=== PATIENT | male | born 1940 | race Caucasian/White ===

== ENCOUNTER 2016-12-09 10:36 | Emergency (ER) | payer MEDICARE, BC ==
[2016-12-09 10:55] VITALS: BP 142/88
--- NOTE | 2016-12-09 11:10 | EDM.PDOC ---
ED HPI GENERAL MEDICAL PROBLEM - General Chief Complaint: Neurological Problem Stated Complaint: DIZZY Time Seen by Provider: 12/09/16 11:10 Source of Information: Reports: Patient History Limitations: Reports: No Limitations - History of Present Illness INITIAL COMMENTS - FREE TEXT/NARRATIVE: Patient is a 76 year old male who awoke this morning with dizziness upon sitting /or standing up. Denies sensation of the room spinning nor history of similar symptoms. With ambulation had to hold onto the wall and furniture. Symptoms resolve with laying down. Has no headache, vision changes, recent URI, substernal chest pain, sob, n/v, abdominal pain, or dysuria. Denies any weakness to the upper/lower extremities. No sensory changes noted as well. He has not had any change in medications or complained of Fever/chills. He has had some discomfort to the left lateral chest with taking a deep breath. NO history of DVT/PE. Left Chest Pain Score (Numeric/FACES): 0 - Related Data Allergies Allergy/AdvReac Type Severity Reaction Status Date / Time amitriptyline AdvReac nausea/vomi Verified 12/09/16 10:51 ting caffeine AdvReac Headache Verified 12/09/16 10:51 codeine AdvReac nausea/vomi Verified 12/09/16 10:51 ting Home Meds: Home Meds Lisinopril 40 mg PO DAILY 08/18/13 [History] Antiox#10/Om3/DHA/EPA/Lut/Zeax [I-Caps with Lutein-[place] 3 SFG] 1 cap PO DAILY 04/18/14 [History] Gluc Shah/Chondro Shah A/Vit C/Mn [Glucosamine 1,500 Complex Cp] 1 cap PO DAILY [History] Ibuprofen [Advil] 200 mg PO Q6HR PRN 04/18/14 [History] Cholecalciferol (Vitamin D3) [Vitamin D3] 5,000 unit PO Q2D 12/09/16 [History] Cinnamon Bark [Cinnamon] 1,000 mg PO DAILY 12/09/16 [History] Magnesium Oxide/Mag AA Chelate [Magnesium] 300 mg PO DAILY 12/09/16 [History] SUMAtriptan Succinate [Imitrex] 50 mg PO ASDIRECTED 12/09/16 [History] atorvaSTATin [Lipitor] 10 mg PO ONETIME 12/09/16 [History] Social & Family History - Tobacco Use Smoking Status *Q: Never Smoker - Alcohol Use Days Per Week of Alcohol Use: 0 - Recreational Drug Use Recreational Drug Use: No ED ROS GENERAL - Review of Systems Review Of Systems: ROS reveals no pertinent complaints other than HPI. ED EXAM, GENERAL - Physical Exam Exam: See Below Exam Limited By: No Limitations General Appearance: Alert, WD/WN, No Apparent Distress Eye Exam: Bilateral Eye: EOMI, Nystagmus (none found), PERRL Ears: Normal External Exam, Normal Canal, Normal TMs, Hearing Loss, Other ( hearing aids in place) Nose: Normal Inspection, Normal Mucosa, No Blood Throat/Mouth: Normal Inspection, Normal Oropharynx, Normal Voice, No Airway Compromise Head: Atraumatic, Normocephalic Neck: Normal Inspection, Supple, Non-Tender, Full Range of Motion. No: Carotid Bruit Respiratory/Chest: No Respiratory Distress, Lungs Clear, Normal Breath Sounds, No Accessory Muscle Use, Chest Non-Tender Cardiovascular: Normal Peripheral Pulses, Regular Rate, Rhythm, No JVD, No Murmur. No: JVD Peripheral Pulses: 2+: Radial (L), Radial (R) GI/Abdominal: Normal Bowel Sounds, Soft, Non-Tender, No Organomegaly, No Distention, No Mass Back Exam: Normal Inspection Extremities: Normal Inspection, Normal Range of Motion, Non-Tender, No Pedal Edema Neurological: Alert, Oriented, CN II-XII Intact, Normal Cognition, No Motor/ Sensory Deficits, Other (Cerebellar fx intact: finger to nose, rapid alternating movement. NO facial drip, pronator drift, weakness upper/lower extremities, sensory/motor deficits. ) Psychiatric: Normal Affect, Normal Mood Skin Exam: Warm, Dry, Intact, Normal Color Course - Vital Signs Last Recorded V/S: Last Vital Signs Temp 96.7 F 12/09/16 10:52 Pulse 78 12/09/16 16:12 Resp 18 12/09/16 16:12 BP 142/88 H 12/09/16 10:52 Pulse Ox 100 12/09/16 16:12 Orthostatic Blood Pressure [ 142/87 Standing] Orthostatic Blood Pressure [ 145/95 Sitting] Orthostatic Blood Pressure [ 128/89 Supine] - Orders/Labs/Meds Labs: Laboratory Tests 12/09/16 12/09/16 12/09/16 Range/Units 11:20 11:20 11:20 WBC 5.46 (4.23-9.07) K/mm3 RBC 4.47 L (4.63-6.08) M/mm3 Hgb 14.4 (13.7-17.5) gm/L Hct 41.7 (40.1-51.0) % MCV 93.3 H (79.0-92.2) fl MCH 32.2 (25.7-32.2) pg MCHC 34.5 (32.2-35.5) g/dl RDW Std Deviation 40.9 (35.1-43.9) fL Plt Count 188 (163-337) K/mm3 MPV 9.7 (9.4-12.3) fl Neut % (Auto) 65.1 (34.0-67.9) % Lymph % (Auto) 21.1 L (21.8-53.1) % Grainger % (Auto) 12.3 H (5.3-12.2) % Eos % (Auto) 1.3 (0.8-7.0) Baso % (Auto) 0.2 (0.1-1.2) % Neut # (Auto) 3.56 (1.78-5.38) K/mm3 Lymph # (Auto) 1.15 L (1.32-3.57) K/mm3 Grainger # (Auto) 0.67 (0.30-0.82) K/mm3 Eos # (Auto) 0.07 (0.04-0.54) K/mm3 Baso # (Auto) 0.01 (0.01-0.08) K/mm3 PT 10.6 (8.0-13.0) SECONDS INR 0.97 APTT 25 (22-36) SECONDS D-Dimer, Quantitative 0.36 (0.19-0.59) mg/L Sodium 139 (136-145) mEq/L Potassium 4.3 (3.5-5.1) mEq/L Chloride 106 (98-107) mEq/L Carbon Dioxide 26 (21-32) mEq/L Anion Gap 11.3 (5-15) BUN 23 H (7-18) mg/dL Creatinine 0.8 (0.7-1.3) mg/dL Est Cr Clr Drug Dosing 77.19 mL/min Estimated GFR (MDRD) > 60 (>60) mL/min BUN/Creatinine Ratio 28.8 H (14-18) Glucose 94 (83-115) mg/dL Calcium 9.6 (8.5-10.1) mg/dL Total Bilirubin 0.8 (0.2-1.0) mg/dL AST 26 (15-37) U/L ALT 39 (16-63) U/L Alkaline Phosphatase 73 (46-116) U/L Troponin I < 0.017 (0.00-0.056) ng/mL C-Reactive Protein 0.2 (<1.0) mg/dL Total Protein 7.1 (6.4-8.2) g/dl Albumin 3.6 (3.4-5.0) g/dl Globulin 3.5 gm/dL Albumin/Globulin Ratio 1.0 (1-2) TSH 3rd Generation 1.101 (0.358-3.74) uIU/mL Urine Color (Yellow) Urine Appearance (Clear) Urine pH (5.0-8.0) Ur Specific [place] (1.005-1.030) Urine Protein (Negative) Urine Glucose (UA) (Negative) Urine Ketones (Negative) Urine Occult Blood (Negative) Urine Nitrite (Negative) Urine Bilirubin (Negative) Urine Urobilinogen (0.2-1.0) Ur Leukocyte Esterase (Negative) Urine RBC (0-5) /hpf Urine WBC (0-5) /hpf Ur Epithelial Cells (0-5) /hpf Amorphous Sediment (NOT SEEN) /hpf Urine Bacteria (FEW) /hpf Hyaline Casts (0-5) /lpf Waxy Casts (0-5) /lpf Urine Mucus (FEW) /hpf 12/09/16 Range/Units 15:15 WBC (4.23-9.07) K/mm3 RBC (4.63-6.08) M/mm3 Hgb (13.7-17.5) gm/L Hct (40.1-51.0) % MCV (79.0-92.2) fl MCH (25.7-32.2) pg MCHC (32.2-35.5) g/dl RDW Std Deviation (35.1-43.9) fL Plt Count (163-337) K/mm3 MPV (9.4-12.3) fl Neut % (Auto) (34.0-67.9) % Lymph % (Auto) (21.8-53.1) % Grainger % (Auto) (5.3-12.2) % Eos % (Auto) (0.8-7.0) Baso % (Auto) (0.1-1.2) % Neut # (Auto) (1.78-5.38) K/mm3 Lymph # (Auto) (1.32-3.57) K/mm3 Grainger # (Auto) (0.30-0.82) K/mm3 Eos # (Auto) (0.04-0.54) K/mm3 Baso # (Auto) (0.01-0.08) K/mm3 PT (8.0-13.0) SECONDS INR APTT (22-36) SECONDS D-Dimer, Quantitative (0.19-0.59) mg/L Sodium (136-145) mEq/L Potassium (3.5-5.1) mEq/L Chloride (98-107) mEq/L Carbon Dioxide (21-32) mEq/L Anion Gap (5-15) BUN (7-18) mg/dL Creatinine (0.7-1.3) mg/dL Est Cr Clr Drug Dosing mL/min Estimated GFR (MDRD) (>60) mL/min BUN/Creatinine Ratio (14-18) Glucose (83-115) mg/dL Calcium (8.5-10.1) mg/dL Total Bilirubin (0.2-1.0) mg/dL AST (15-37) U/L ALT (16-63) U/L Alkaline Phosphatase (46-116) U/L Troponin I (0.00-0.056) ng/mL C-Reactive Protein (<1.0) mg/dL Total Protein (6.4-8.2) g/dl Albumin (3.4-5.0) g/dl Globulin gm/dL Albumin/Globulin Ratio (1-2) TSH 3rd Generation (0.358-3.74) uIU/mL Urine Color Yellow (Yellow) Urine Appearance Slt cloudy H (Clear) Urine pH 7.0 (5.0-8.0) Ur Specific [place] 1.025 (1.005-1.030) Urine Protein Negative (Negative) Urine Glucose (UA) Negative (Negative) Urine Ketones Negative (Negative) Urine Occult Blood Negative (Negative) Urine Nitrite Negative (Negative) Urine Bilirubin Negative (Negative) Urine Urobilinogen 0.2 (0.2-1.0) Ur Leukocyte Esterase Negative (Negative) Urine RBC 0-5 (0-5) /hpf Urine WBC 0-5 (0-5) /hpf Ur Epithelial Cells 0-5 (0-5) /hpf Amorphous Sediment Moderate H (NOT SEEN) /hpf Urine Bacteria Few (FEW) /hpf Hyaline Casts 0-5 (0-5) /lpf Waxy Casts 0-5 (0-5) /lpf Urine Mucus Few (FEW) /hpf Meds: Medications Discontinued Medications Generic Name Dose Route Start Last Admin Trade Name Freq PRN Reason Stop Dose Admin Gadobenate Dimeglumine 20 ml 12/09/16 13:27 12/09/16 14:44 Multihance IVPUSH 12/09/16 13:28 20 ml ONETIME ONE Administration Sodium Chloride 1,000 mls @ 150 mls/hr 12/09/16 11:30 12/09/16 11:42 Normal Saline IV 75 mls/hr ASDIRECTED URMILA Administration Lorazepam 1 mg 12/09/16 12:28 12/09/16 12:52 Ativan IVPUSH 12/09/16 12:29 1 mg ONETIME ONE Administration Sodium Chloride 10 ml 12/09/16 11:28 12/09/16 11:20 Saline Flush FLUSH 10 ml ASDIRECTED PRN Administration Keep Vein Open Sodium Chloride 40 ml 12/09/16 13:27 12/09/16 14:10 Normal Saline FLUSH 12/09/16 13:28 40 ml ONETIME ONE Administration - Re-Assessments/Exams Free Text/Narrative Re-Assessment/Exam: Peripheral IV will be established with normal saline 75 mL per hour. Initial labs and studies include CBC, Chem 14, PTT/INR, PTT, troponin, TSH, UA, CRP, chest x-ray one view, head CT without contrast, and d-dimer. EKG sinus rhythm and rate of 68 with a WA interval 163 and a QTC of 446, poor R wave progression, Q waves in anterior lateral leads, no acute ST changes. 12/09/16 12:04 Labs reviewed: White blood cell count 5.46, hemoglobin 14.4, platelets 183. d-dimer was 0.36 therefore patient has low probability for PE. Troponin, TSH, C14, UA, CRP are pending. CXR reviewed: No acute intrathoracic abnormalities noted. 12/09/16 12:26 Sodium 139, potassium 4.3, AG is 11.3, creatinine 0.8, glucose 94 , LFTs normal, troponin less than 0.017, CRP 0.2, TSH is 1.101. Hemoccult test was negative. Orthostatic vitals were negative. CT of the head w/o contrast impression: Soft tissue fullness within the pituitary fossa extending into the right cavernous sinus. Uncertain if this is a real finding as there is some adjacent mucosal thickening within the spine or sinus. MRI recommended which should include contrast images to further evaluate. Mild senescent changes. No intracranial abnormalities otherwise seen. 12/09/16 13:10 Ordered MRI of the brain. This will be conducted in approximately 15 minutes. Patient has been up walking with no dizziness. He is ready to go home but will await for results of MRI. 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 No involvement of the optic chiasm is seen. This finding is vaguely seen on prior study [id number] and therefore is likely chronic but better seen as this was a pituitary study. Recommend repeat pituitary MRI to confirm continued stability one year. Please correlate that the patient has no symptoms referral to these findings to indicate earlier intervention. Mild ischemic demyelination change as noted above. Patient has been experiencing frequent severe headaches aborted with imitrex. Will order LH, FSH, prolactin to further delineate what hormone is being secreted by the adenoma. Further testing will be conducted by endocrinology. Patient will see his PCP to discuss results and refer to endocrinology. Departure - Departure Time of Disposition: 15:50 Disposition: Home, Self-Care 01 Condition: Good Clinical Impression: Dizzinesses, Pituitary macroadenoma Instructions: Recurrent Migraine Headache, Dizziness Referrals: Mary Jo Garg NP [Primary Care Provider] - Forms: ED Department Discharge Additional Instructions: MRI of the brain revealed a small pituitary macroadenoma. Low probability this is the cause of your frequent headaches. Dizziness was resolved with Ativan suggesting that this was benign in nature. Ears were cleanse due to cerumen impaction. This may have been the cause of your dizziness as well. Further blood work has been ordered to determine what hormone has been secreted by these macroadenoma. Will have you follow-up with your PCP in the next week to discuss results and referr to endocrinology for further testing and management. Return to ED as needed for any new or worsening symptoms.
[2016-12-09] MEDS ORDERED: Sodium Chloride 0.9% 10 ML Syringe FLUSH PRN (11:28)
[2016-12-09] MEDS ORDERED: Sodium Chloride 0.9% 1,000 ML IV SCH (11:30)
[2016-12-09] MEDS ORDERED: LORazepam 2 MG/ML MDV IVPUSH ONE (12:28)
--- NOTE | 2016-12-09 12:44 | CT ---
Head CT Technique: Multiple axial sections were obtained. Intravenous contrast was not utilized. Comparison: No previous intracranial imaging is available. Findings: Ventricles along with basal cisterns and sulci over the convexities are mildly prominent. No abnormal parenchymal densities are seen. No evidence of intracranial hemorrhage. No midline shift or mass effect is seen. Soft tissue fullness is seen within the pituitary fossa extending into the right cavernous sinus. There is some adjacent mucosal thickening within the sphenoid sinus and uncertain if findings within the cavernous sinus and pituitary are more prominent than real due to partial volume averaging because of the sinus finding. Other visualized sinuses are clear. No acute calvarial abnormality is identified. Impression: 1. Soft tissue fullness within the pituitary fossa extending into the right cavernous sinus. Uncertain if this is a real finding as there is some adjacent mucosal thickening within the sphenoid sinus. MRI recommended which should include contrast images to further evaluate (if patient's creatinine function is satisfactory). 2. Mild senescent change. No acute intracranial abnormality is otherwise seen. Diagnostic code #9
[2016-12-09] MEDS ORDERED: Gadobenate Dimeglumine 529 MG/ML 20 ML SDV IVPUSH ONE (13:27)
[2016-12-09] MEDS ORDERED: Sodium Chloride 0.9% 10 ML SDV FLUSH ONE (13:27)
--- NOTE | 2016-12-09 14:23 | CR ---
Chest: Portable view of the chest was obtained. Comparison: Previous chest x-ray of 07/05/15. Heart size is normal. Upper mediastinum is felt to be within normal limits for portable technique. Lungs are clear. Bony structures are grossly intact. Impression: 1. Nothing acute is appreciated on portable chest x-ray. Diagnostic code #2
--- NOTE | 2016-12-09 15:35 | MR ---
MRI brain with pituitary (with and without contrast) Technique: T1 sagittal; T2, T2 FLAIR, T1 and diffusion axial; T1 FLAIR coronal; T1 axial and sagittal images to take gland were obtained. Post gadolinium T1 sagittal images as well as T1 post gadolinium dynamic images through the pituitary gland were obtained. Post gadolinium T1 axial and post gadolinium T1 FLAIR coronal images were obtained to the brain. Comparison: Prior head CT study performed earlier on the same day (12:08 PM), prior MRI brain dated 11/03/12. Findings: Poorly enhancing area is seen to the right side of the pituitary fossa believed to represent small pituitary mass measuring about 1.1 cm in size most likely representing a pituitary macroadenoma. This abuts the cavernous sinus but shows no extension into the cavernous sinus at this time. Infundibulum remains midline. No superior extension to involve the optic chiasm is seen. Ventricles along with basal cisterns and sulci over convexities are mildly prominent. Normal signal void is seen within the major cerebral arteries within the skull base. Small areas of increased signal are noted within the periventricular and subcortical white matter compatible with small vessel ischemic demyelination change. No larger areas of abnormal signal are seen within the brain parenchyma. No acute diffusion abnormalities are seen. No abnormal enhancement is seen within the brain parenchyma. Impression: 1. 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 No involvement of the optic chiasm is seen. This finding is vaguely seen on prior study of 11/03/12 and therefore is likely chronic but better seen as this was a pituitary study. Recommend repeat pituitary MRI to confirm continued stability in one year. Please correlate that patient has no symptoms referrable to this finding to indicate earlier intervention. 2. Mild ischemic demyelination change as noted above. Diagnostic code #9
== END 2016-12-09 16:00 | disposition home or self-care (01) ==
LOC: JD.ED 10:36
DX: R42 Dizziness and giddiness (principal); D35.2 Benign neoplasm of pituitary gland; Z79.899 Other long term (current) drug therapy; Z88.8 Allergy status to other drugs, medicaments and biological substances; Z91.048 Other nonmedicinal substance allergy status; Z88.5 Allergy status to narcotic agent
CPT/HCPCS: 36415; 70450; 70553; 71010; 80053; 81001; 84443; 84484; 85025; 85379; 85610; 85730; 86140; 96361; 96374; 99285; A9577; J2060; J7040; J7050; 99284

== ENCOUNTER 2017-05-13 10:58 | Day surgery (SDC) | payer MEDICARE, BC ==
[~2017-05-13 10:58] MED LIST: Lactated Ringers 1,000 ML IV SCH; Lidocaine 1%/Sod Bicarbonate in NS 8.4% 1 ML Syringe IDERM PRN; Sodium Chloride 0.9% 10 ML Syringe FLUSH PRN
[2017-05-13] MEDS ORDERED: Lidocaine 1% with EPINEPHrine 1:100,000 20 ML MDV ONE (11:01)
[2017-05-13] MEDS ORDERED: Bupivacaine 0.5%/EPINEPHrine 1:200,000 50 ML MDV ONE (11:02)
--- NOTE | 2017-05-13 11:21 | PCM.PREANE ---
Preanesthetic Assessment - Anesthesia/Transfusion/Family Hx Anesthesia History: Prior Anesthesia Without Reaction Type of Anesthesia Reaction: Other (see below) (difficult intubation) Family History of Anesthesia Reaction: No Transfusion History: Prior Transfusion Without Reaction Intubation History: History of Difficulty Intubation (letter from [facility]) - Review of Systems General: No Symptoms Pulmonary: No Symptoms Cardiovascular: No Symptoms Gastrointestinal: No Symptoms Neurological: No Symptoms Other: Reports: Easy Bruising - Physical Assessment NPO Status Date: 05/12/17 NPO Status Time: 23:00 Pulse: 90 O2 Sat by Pulse Oximetry: 93 Respiratory Rate: 19 Blood Pressure: 144/84 Temperature: 97.8 F Height: 5 ft 8 in Weight: 111 kg ASA Class: 3 Mental Status: Alert & Oriented x3 Airway Class: Mallampati = 2 Dentition: Reports: Normal Dentition Thyro-Mental Finger Breadths: 2 Mouth Opening Finger Breadths: 3 ROM/Head Extension: Other Lungs: Clear to Auscultation, Normal Respiratory Effort Cardiovascular: Regular Rate, Regular Rhythm - Allergies Allergies/Adverse Reactions: Allergies Allergy/AdvReac Type Severity Reaction Status Date / Time amitriptyline AdvReac nausea/vomi Verified 05/12/17 13:11 ting caffeine AdvReac Headache Verified 05/12/17 13:11 codeine AdvReac nausea/vomi Verified 05/12/17 13:11 ting - Blood Blood Available: No - Acknowledgements Anesthesia Type Planned: General Anesthesia Pt an Appropriate Candidate for the Planned Anesthesia: Yes Alternatives and Risks of Anesthesia Discussed w Pt/Guardian: Yes Pt/Guardian Understands and Agrees with Anesthesia Plan: Yes PreAnesthesia Questionnaire HEENT History: Reports: Hard of Hearing Cardiovascular History: Reports: Arrhythmia, High Cholesterol, Hypertension Respiratory History: Reports: Sleep Apnea, Other (See Below) Other Respiratory History: wears CPAP Gastrointestinal History: Reports: Hemorrhoids, Other (See Below) Other Gastrointestinal History: abdominal hernia Genitourinary History: Reports: Renal Calculus, Other (See Below) Other Genitourinary History: blood in urine, baldder stone, nocturia, history of need for catheterization TIRE MOLDER History: Reports: None Musculoskeletal History: Reports: Osteoporosis, Other (See Below) Other Musculoskeletal History: generalized weakness, bilateral plantar fasciitis , right elbow pain Neurological History: Reports: Headaches, Chronic, Migraines Psychiatric History: Reports: None Endocrine/Metabolic History: Reports: Vitamin D Deficiency Hematologic History: Reports: None Immunologic History: Reports: None Oncologic (Cancer) History: Reports: Prostate Dermatologic History: Reports: Other (See Below) Other Dermatologic History: ingrown toenail, benign neoplasm of face, seborrheic keratosis, skin lesion and skin irritation - Past Surgical History HEENT Surgical History: Reports: Tonsillectomy Cardiovascular Surgical History: Reports: None Respiratory Surgical History: Reports: None GI Surgical History: Reports: Colonoscopy, Hernia Repair/Other Male Surgical History: Reports: Other (See Below) Other Male Surgeries/Procedures: lithotripsy Endocrine Surgical History: Reports: None Neurological Surgical History: Reports: None Musculoskeletal Surgical History: Reports: Knee Replacement, Other (See Below) Other Musculoskeletal Surgeries/Procedures:: low back surgery, right total knee , 2 rods in right hip Dermatological Surgical History: Reports: None - SUBSTANCE USE Smoking Status *Q: Never Smoker Tobacco Use Within Last Twelve Months: No Second Hand Smoke Exposure: No Days Per Week of Alcohol Use: 0 (once a month) Recreational Drug Use History: No - HOME MEDS Home Medications: Home Meds Antiox#10/Om3/DHA/EPA/Lut/Zeax [I-Caps with Lutein-[place] 3 SFG] 1 cap PO DAILY 04/18/14 [History] Gluc Shah/Chondro Shah A/Vit C/Mn [Glucosamine 1,500 Complex Cp] 1 cap PO DAILY [History] Cholecalciferol (Vitamin D3) [Vitamin D3] 5,000 unit PO Q2D 12/09/16 [History] SUMAtriptan Succinate [Imitrex] 50 mg PO ASDIRECTED PRN 12/09/16 [History] atorvaSTATin [Lipitor] 10 mg PO BEDTIME 12/09/16 [History] Acetaminophen [Tylenol Extra Strength] 2 tab PO BID PRN 05/12/17 [History] Alendronate Sodium [Alendronate] 70 mg PO TU 05/12/17 [History] Lisinopril [Lisinopril] 20 mg PO DAILY 05/12/17 [History] Magnesium Oxide/Mag AA Chelate [Magnesium] 300 mg PO DAILY 05/12/17 [History] Tamsulosin HCl [Tamsulosin HCl] 0.4 mg PO DAILY 05/12/17 [History] - CURRENT (IN HOUSE) MEDS Current Meds: Current Medications Lactated Ringer's (Ringers, Lactated) 1,000 mls @ 125 mls/hr IV ASDIRECTED URMILA Stop: 05/13/17 23:00 Lidocaine/Sodium Bicarbonate (Buffered Lidocaine 1% In Ns 8.4%) 0.25 ml IDERM ONETIME PRN PRN Reason: Prior to IV Start Stop: 05/13/17 18:00 Sodium Chloride (Saline Flush) 10 ml FLUSH ASDIRECTED PRN PRN Reason: Keep Vein Open Stop: 05/13/17 18:00 Discontinued Medications Bupivacaine HCl/Epinephrine Bitart (Marcaine 0.5%/Epinephrine 1:200,000) Confirm Administered Dose 50 ml .ROUTE .STK-MED ONE Stop: 05/13/17 11:03 Lidocaine/Epinephrine (Xylocaine 1% With Epinephrine 1:100,000) Confirm Administered Dose 20 ml .ROUTE .STK-MED ONE Stop: 05/13/17 11:02
[2017-05-13] MEDS ORDERED: Propofol 200 MG/20 ML SDV ONE (11:44)
[2017-05-13] MEDS ORDERED: fentaNYL 250 MCG/5 ML SDV ONE (11:44)
[2017-05-13] MEDS ORDERED: Lidocaine 1% 4 ML ONE (11:47)
[2017-05-13] MEDS ORDERED: Dexamethasone 4 MG/ML SDV ONE (11:47)
[2017-05-13] MEDS ORDERED: Ondansetron 4 MG/2 ML SDV ONE (11:47)
[2017-05-13] MEDS ORDERED: ePHEDrine/Normal Saline 25 MG/5 ML Syringe ONE (12:08)
[2017-05-13] MEDS ORDERED: Phenylephrine/Normal Saline 100 MCG/ML 10 ML Syringe ONE (12:14)
[2017-05-13] MEDS ORDERED: Ondansetron 4 MG/2 ML SDV IVPUSH PRN (12:19)
[2017-05-13] MEDS ORDERED: Meperidine PF 50 MG/ML Syringe IVPUSH PRN (12:19)
[2017-05-13] MEDS ORDERED: Lactated Ringers 1,000 ML ONE (12:42)
--- NOTE | 2017-05-13 12:42 | PCM.OPNOTE ---
- General Post-Op/Procedure Note Date of Surgery/Procedure: 05/13/17 Operative Procedure(s): Open supraumbilical hernia repair with mesh Findings: 3 cm defect containing herniated greater omentum with an a mature hernia sac Pre Op Diagnosis: Symptomatic supraumbilical hernia nonreducible Post-Op Diagnosis: Same Anesthesia Technique: General LMA, Local Primary Surgeon: Ulysses Carter Pathology: None EBL in mLs: 3 Complications: None Condition: Good Free Text/Narrative:: After adequate general LMA anesthesia was obtained the patient's abdomen was prepped and draped in the usual fashion for an open umbilical hernia repair with mesh. Local analgesia was given into the skin and subcutaneous tissues. A 15 blade was used to make a 6 cm incision in the midline. I deepened the incision with Metzenbaum scissors sharply to the immediately seen hernia. I circumferentially dissected away the herniation from the surrounding subcutaneous tissues with blunt finger sharp scissor and electrocautery to divide the adhesions. Once this was done I then excised the base of the sac from the fascial edge. I opened the sac which contained greater omentum. I will excise the sac and reduced the hernia. The hernia defect was 3 cm. I placed a 6.[address] mesh within the defect then closed the fascia over the mesh with 8 interrupted 0 Ethibond sutures. I irrigated out the field with saline. Additional local was given at the fascial level. The subcutaneous tissues were closed with 3-0 Vicryl and the skin was closed with 4-0 subcuticular Vicryl. Steri-Strips and gauze were used for the dressing. There were no procedural complications.
[2017-05-13] MEDS: fentaNYL 100 MCG/2 ML SDV IVPUSH PRN ×3 (13:07→13:30)
--- NOTE | 2017-05-13 13:10 | PCM.POSTAN ---
POST ANESTHESIA ASSESSMENT - MENTAL STATUS Mental Status: Alert, Oriented - VITAL SIGNS Pulse Rate: 102 SaO2: 90 Resp Rate: 16 Blood Pressure: 152/94 Temperature: 36.9 C - RESPIRATORY Respiratory Status: Respiratory Rate WNL, Airway Patent, O2 Saturation Stable, Supplemental Oxygen - CARDIOVASCULAR CV Status: Pulse Rate WNL - GASTROINTESTINAL GI Status: No Symptoms - PAIN Pain Score: 0 - POST OP HYDRATION Hydration Status: Adequate & Stable - OBSERVATIONS Free Text/Narrative:: no anesthesia complications noted
[2017-05-13] MEDS ORDERED: Acetaminophen/oxyCODONE 325-5 MG Tab PO PRN (13:28)
[2017-05-13 14:01] VITALS: BP 131/86
== END 2017-05-13 15:15 | disposition home or self-care (01) ==
LOC: JD.SDS 10:58
PROVIDERS: ATTEND Surgery
DX: K43.9 Ventral hernia without obstruction or gangrene (principal); M81.0 Age-related osteoporosis without current pathological fracture; E78.2 Mixed hyperlipidemia; R31.9 Hematuria, unspecified; I10 Essential (primary) hypertension; L60.0 Ingrowing nail; E55.9 Vitamin D deficiency, unspecified; G47.30 Sleep apnea, unspecified; Z88.5 Allergy status to narcotic agent; Z98.890 Other specified postprocedural states; Z85.46 Personal history of malignant neoplasm of prostate; Z79.899 Other long term (current) drug therapy; Z88.8 Allergy status to other drugs, medicaments and biological substances; Z90.89 Acquired absence of other organs; Z99.89 Dependence on other enabling machines and devices; Z87.442 Personal history of urinary calculi; Z96.651 Presence of right artificial knee joint
CPT/HCPCS: 49561; 49568; A9270; C1781; J1100; J2405; J3010; J7050; J7120; J2704

== ENCOUNTER 2019-11-16 15:25 | Emergency (ER) | payer MEDICARE, BC ==
[2019-11-16] MEDS ORDERED: Lidocaine 2% Jelly 10 ML Urojet MUCMEM ONE (15:32)
[2019-11-16 15:38] VITALS: BP 146/91; PULSE 94
--- NOTE | 2019-11-16 17:57 | EDM.PDOC ---
ED HPI GENERAL MEDICAL PROBLEM - General Chief Complaint: Genitourinary Problem Stated Complaint: NEEDS CATHETER SENT BY SHU GARG Time Seen by Provider: 11/16/19 15:41 Source of Information: Reports: Patient, RN Notes Reviewed - History of Present Illness INITIAL COMMENTS - FREE TEXT/NARRATIVE: 79 yr old male with urinary retention. States he has to void about every 45 minutes around the clock. Has an appt. with Urology the next day from time of visit to ED. No fever or chills. Attempts were made to place catheter at [facility] but that was unsuccessful. - Related Data Allergies Allergy/AdvReac Type Severity Reaction Status Date / Time amitriptyline AdvReac nausea/vomi Verified 11/16/19 15:38 ting caffeine AdvReac Headache Verified 11/16/19 15:38 codeine AdvReac nausea/vomi Verified 11/16/19 15:38 ting Home Meds: Home Meds Antiox.mv No.10/Omeg3s/Lut/Rob [I-Caps with Lutein-[place] 3 SFG] 1 cap PO DAILY 04/18/14 [History] Gluc Shah/Chondro Shah A/Vit C/Mn [Glucosamine 1,500 Complex Cp] 1 cap PO DAILY 04/18/14 [History] Cholecalciferol (Vitamin D3) [Vitamin D3] 5,000 unit PO Q2D 12/09/16 [History] SUMAtriptan succinate [Imitrex] 50 mg PO ASDIRECTED PRN 12/09/16 [History] atorvaSTATin [Lipitor] 10 mg PO BEDTIME 12/09/16 [History] Acetaminophen [Tylenol Extra Strength] 2 tab PO BID PRN 05/12/17 [History] Alendronate Sodium [Alendronate] 70 mg PO WE 05/12/17 [History] Lisinopril 40 mg PO DAILY 05/12/17 [History] Magnesium Oxide/Magnesium [Magnesium] 800 mg PO DAILY 05/12/17 [History] Tamsulosin HCl 0.4 mg PO DAILY 05/12/17 [History] Cinnamon Bark [Cinnamon] 1,000 mg PO DAILY 11/16/19 [History] Divalproex Sodium [Divalproex Sodium ER] 250 mg PO DAILY 11/16/19 [History] Mv-Mn/Herb 208/Beta-Sitosterol [Urinozinc Prostate Formula Tab] 2 tab PO DAILY 11/16/19 [History] [place]-3/DHA/Epa/Fish Oil [[place]-3 Fish Oil 1,000 MG Sfgl] 520 mg PO DAILY 11/16/19 [History] Past Medical History HEENT History: Reports: Hard of Hearing Cardiovascular History: Reports: Arrhythmia, High Cholesterol, Hypertension Respiratory History: Reports: Sleep Apnea, Other (See Below) Other Respiratory History: wears CPAP Gastrointestinal History: Reports: Hemorrhoids, Other (See Below) Other Gastrointestinal History: abdominal hernia Genitourinary History: Reports: Renal Calculus, Urinary Incontinence, Other (See Below) Other Genitourinary History: blood in urine, baldder stone, nocturia, history of need for catheterization 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 Musculoskeletal History: Reports: Osteoporosis, Other (See Below) Other Musculoskeletal History: generalized weakness, bilateral plantar fasciitis, right elbow pain Neurological History: Reports: Headaches, Chronic, Migraines Psychiatric History: Reports: None Endocrine/Metabolic History: Reports: Obesity/BMI 30+, Vitamin D Deficiency Hematologic History: Reports: None Immunologic History: Reports: None Oncologic (Cancer) History: Reports: Prostate Dermatologic History: Reports: Other (See Below) Other Dermatologic History: ingrown toenail, benign neoplasm of face, seborrheic keratosis, skin lesion and skin irritation - Infectious Disease History Infectious Disease History: Reports: None - Past Surgical History HEENT Surgical History: Reports: Tonsillectomy Respiratory Surgical History: Reports: None GI Surgical History: Reports: Colonoscopy, Hernia Repair/Other Male Surgical History: Reports: Other (See Below) Other Male Surgeries/Procedures: lithotripsy Neurological Surgical History: Reports: None Musculoskeletal Surgical History: Reports: Knee Replacement, Other (See Below) Other Musculoskeletal Surgeries/Procedures:: low back surgery, right total knee, 2 rods in right hip Dermatological Surgical History: Reports: None Social & Family History - Tobacco Use Smoking Status *Q: Never Smoker - Caffeine Use Caffeine Use: Reports: None - Recreational Drug Use Recreational Drug Use: No ED ROS GENERAL - Review of Systems Review Of Systems: See Below Constitutional: Denies: Fever, Chills, Diaphoresis HEENT: Reports: No Symptoms Respiratory: Denies: Shortness of Breath Cardiovascular: Denies: Chest Pain GI/Abdominal: Denies: Abdominal Pain, Nausea, Vomiting : Reports: Frequency, Urgency, Urinary Retention Musculoskeletal: Denies: Back Pain Skin: Reports: No Symptoms Neurological: Reports: No Symptoms ED EXAM, RENAL/ - Physical Exam Exam: See Below General Appearance: Alert, No Apparent Distress Throat/Mouth: Normal Inspection Neck: Supple Respiratory/Chest: No Respiratory Distress, Lungs Clear, Normal Breath Sounds Cardiovascular: Regular Rate, Rhythm GI/Abdominal: Soft, Non-Tender (Male) Exam: Normal Inspection Back Exam: No: CVA Tenderness (L), CVA Tenderness (R) Extremities: Normal Inspection, Normal Range of Motion. No: Pedal Edema, Leg Pain Neurological: Alert, Oriented, No Motor/Sensory Deficits Skin Exam: Warm, Dry, Normal Color Course - Vital Signs Last Recorded V/S: Last Vital Signs Temp 97.6 F 11/16/19 15:33 Pulse 94 11/16/19 15:33 Resp 16 11/16/19 15:33 BP 146/91 H 11/16/19 15:33 Pulse Ox 92 L 11/16/19 15:33 - Orders/Labs/Meds Labs: Laboratory Tests 11/16/19 Range/Units 16:15 Urine Color Yellow (Yellow) Urine Appearance Slt cloudy H (Clear) Urine pH 6.0 (5.0-8.0) Ur Specific [place] 1.025 (1.005-1.030) Urine Protein Trace H (Negative) Urine Glucose (UA) Negative (Negative) Urine Ketones Negative (Negative) Urine Occult Blood 3+ H (Negative) Urine Nitrite Negative (Negative) Urine Bilirubin Negative (Negative) Urine Urobilinogen 0.2 (0.2-1.0) Ur Leukocyte Esterase Negative (Negative) Urine RBC 75-100 H (0-5) /hpf Urine WBC 0-5 (0-5) /hpf Ur Squamous Epith Cells 0-5 (0-5) /hpf Urine Bacteria Few (FEW) /hpf Urine Mucus Few (FEW) /hpf Meds: Medications Discontinued Medications Generic Name Dose Route Start Last Admin Trade Name Freq PRN Reason Stop Dose Admin Lidocaine HCl 10 ml 11/16/19 15:32 11/16/19 16:02 Xylocaine 2% Jelly MUCMEM 11/16/19 15:33 10 ml ONETIME ONE Administration - Re-Assessments/Exams Free Text/Narrative Re-Assessment/Exam: 11/19/19 14:19 Pt voided a small amt, had residual of about 300 ml per bladder scan. Coudee russell placed, about 300 ml out, Ua showed no infection. Grossly clear. Discharge instr. as documented. Departure - Departure Time of Disposition: 17:56 Disposition: Home, Self-Care 01 Condition: Fair Clinical Impression: Retention of urine - Discharge Information Instructions: Acute Urinary Retention, Male, [id number] Referrals: Shu Garg REAL ESTATE ANALYST [Primary Care Provider] - Forms: ED Department Discharge Additional Instructions: Russell catheter with leg bag. Drink plenty of water. See Dr Ortiz tomorrow as planned. Sepsis Event Note (ED) - Evaluation Sepsis Screening Result: No Definite Risk
== END 2019-11-16 18:25 | disposition home or self-care (01) ==
LOC: JD.ED 15:25
DX: R33.9 Retention of urine, unspecified (principal); I10 Essential (primary) hypertension; E66.9 Obesity, unspecified; Z68.41 Body mass index [BMI] 40.0-44.9, adult; Z88.5 Allergy status to narcotic agent; Z88.8 Allergy status to other drugs, medicaments and biological substances; Z79.899 Other long term (current) drug therapy
CPT/HCPCS: 51702; 51798; 81001; 99282; 99283

== ENCOUNTER 2020-01-16 15:06 | Emergency (ER) | payer MEDICARE, BC ==
[2020-01-16] MEDS ORDERED: Lidocaine 2% Jelly 10 ML Urojet MUCMEM ONE (15:19)
--- NOTE | 2020-01-16 15:21 | EDM.PDOC ---
ED HPI GENERAL MEDICAL PROBLEM - General Chief Complaint: General Stated Complaint: CATHETER COMPLAINT/needs COVID testing Time Seen by Provider: 01/16/20 15:13 Source of Information: Reports: Patient, RN Notes Reviewed History Limitations: Reports: No Limitations - History of Present Illness INITIAL COMMENTS - FREE TEXT/NARRATIVE: Patient is a 79-year-old male who presents to the ED for evaluation of his Russell catheter issue. Patient notes that his Russell catheter became plugged earlier today, and he is not noting any drainage coming from the catheter. He does not state he has seen any blood coming from the catheter. It was draining just fine last night, and he noticed this morning that it stopped draining. He further notes that he is to have urological surgery for suprapubic catheter placement this Thursday by a provider at [facility] in [place]. He was told by that provider, that he needed COVID testing prior to surgery, they requested that he get done on Thursday. Patient denies any other sick-like symptoms, fever/chills, cough/shortness of breath, nausea/vomiting/diarrhea. Bladder Pain Score (Numeric/FACES): 8 - Related Data Allergies Allergy/AdvReac Type Severity Reaction Status Date / Time amitriptyline AdvReac nausea/vomi Verified 01/16/20 15:39 ting caffeine AdvReac Headache Verified 01/16/20 15:39 codeine AdvReac nausea/vomi Verified 01/16/20 15:39 ting Home Meds: Home Meds Antiox.mv No.10/Omeg3s/Lut/Rob [I-Caps with Lutein-[place] 3 SFG] 1 cap PO DAILY 04/18/14 [History] Gluc Shah/Chondro Shah A/Vit C/Mn [Glucosamine 1,500 Complex Cp] 1 cap PO DAILY 04/18/14 [History] Cholecalciferol (Vitamin D3) [Vitamin D3] 5,000 unit PO Q2D 12/09/16 [History] SUMAtriptan succinate [Imitrex] 50 mg PO ASDIRECTED PRN 12/09/16 [History] atorvaSTATin [Lipitor] 10 mg PO BEDTIME 12/09/16 [History] Acetaminophen [Tylenol Extra Strength] 2 tab PO BID PRN 05/12/17 [History] Alendronate Sodium [Alendronate] 70 mg PO WE 05/12/17 [History] Lisinopril 40 mg PO DAILY 05/12/17 [History] Magnesium Oxide/Magnesium [Magnesium] 800 mg PO DAILY 05/12/17 [History] Tamsulosin HCl 0.4 mg PO DAILY 05/12/17 [History] Cinnamon Bark [Cinnamon] 1,000 mg PO DAILY 11/16/19 [History] Divalproex Sodium [Divalproex Sodium ER] 250 mg PO DAILY 11/16/19 [History] Mv-Mn/Herb 208/Beta-Sitosterol [Urinozinc Prostate Formula Tab] 2 tab PO DAILY 11/16/19 [History] [place]-3/DHA/Epa/Fish Oil [[place]-3 Fish Oil 1,000 MG Sfgl] 520 mg PO DAILY 11/16/19 [History] Levofloxacin [Levaquin] 500 mg PO DAILY 5 Days #4 tablet 01/16/20 [Rx] Past Medical History HEENT History: Reports: Hard of Hearing Cardiovascular History: Reports: Arrhythmia, High Cholesterol, Hypertension Respiratory History: Reports: Sleep Apnea, Other (See Below) Other Respiratory History: wears CPAP Gastrointestinal History: Reports: Hemorrhoids, Other (See Below) Other Gastrointestinal History: abdominal hernia Genitourinary History: Reports: Renal Calculus, Urinary Incontinence, Other (See Below) Other Genitourinary History: blood in urine, baldder stone, nocturia, history of need for catheterization 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 Musculoskeletal History: Reports: Osteoporosis, Other (See Below) Other Musculoskeletal History: generalized weakness, bilateral plantar fasciitis, right elbow pain Neurological History: Reports: Headaches, Chronic, Migraines Psychiatric History: Reports: None Endocrine/Metabolic History: Reports: Obesity/BMI 30+, Vitamin D Deficiency Hematologic History: Reports: None Immunologic History: Reports: None Oncologic (Cancer) History: Reports: Prostate Dermatologic History: Reports: Other (See Below) Other Dermatologic History: ingrown toenail, benign neoplasm of face, seborrheic keratosis, skin lesion and skin irritation - Infectious Disease History Infectious Disease History: Reports: None - Past Surgical History HEENT Surgical History: Reports: Tonsillectomy Respiratory Surgical History: Reports: None GI Surgical History: Reports: Colonoscopy, Hernia Repair/Other Male Surgical History: Reports: Other (See Below) Other Male Surgeries/Procedures: lithotripsy Neurological Surgical History: Reports: None Musculoskeletal Surgical History: Reports: Knee Replacement, Other (See Below) Other Musculoskeletal Surgeries/Procedures:: low back surgery, right total knee, 2 rods in right hip Dermatological Surgical History: Reports: None Social & Family History - Caffeine Use Caffeine Use: Reports: None ED ROS GENERAL - Review of Systems Review Of Systems: Comprehensive ROS is negative, except as noted in HPI. ED EXAM, GENERAL - Physical Exam Exam: See Below Exam Limited By: No Limitations General Appearance: Alert, WD/WN, No Apparent Distress Respiratory/Chest: No Respiratory Distress, Lungs Clear, Normal Breath Sounds, No Accessory Muscle Use, Chest Non-Tender Cardiovascular: Normal Peripheral Pulses, Regular Rate, Rhythm, No Murmur (Male) Exam: Normal Inspection (russell catheter in place, no drainage noted at this time.) Extremities: Normal Inspection, Normal Capillary Refill Neurological: Alert, Oriented, Normal Cognition, No Motor/Sensory Deficits Psychiatric: Normal Affect, Normal Mood Skin Exam: Warm, Dry, Intact, Normal Color, No Rash Course - Vital Signs Last Recorded V/S: Last Vital Signs Temp 97.9 F 01/16/20 15:10 Pulse 96 01/16/20 15:10 Resp 18 01/16/20 15:10 BP 136/99 H 01/16/20 15:10 Pulse Ox 95 01/16/20 15:10 - Orders/Labs/Meds Orders: Active Orders 24 hr Category Date Time Status Influenza Vaccine Charge [RC] .DISCHARGE Care 01/16/20 15:52 Active Insert Urinary Catheter [OM.PC] Stat Care 01/16/20 15:19 Ordered Urinary Catheter Assessment [RC] ASDIRECTED Care 01/16/20 15:20 Active CORONAVIRUS COVID-19 PCR PHL Stat Lab 01/16/20 16:10 Received Labs: Laboratory Tests 01/16/20 Range/Units 15:30 Urine Color Yellow (Yellow) Urine Appearance Cloudy H (Clear) Urine pH 8.5 H (5.0-8.0) Ur Specific [place] 1.020 (1.005-1.030) Urine Protein 2+ H (Negative) Urine Glucose (UA) Negative (Negative) Urine Ketones Negative (Negative) Urine Occult Blood 1+ H (Negative) Urine Nitrite Negative (Negative) Urine Bilirubin Negative (Negative) Urine Urobilinogen 0.2 (0.2-1.0) Ur Leukocyte Esterase 1+ H (Negative) Urine RBC 5-10 H (0-5) /hpf Urine WBC 0-5 (0-5) /hpf Ur Squamous Epith Cells 0-5 (0-5) /hpf Amorphous Sediment Moderate H (NOT SEEN) /hpf Urine Bacteria Moderate H (FEW) /hpf Urine Mucus Not seen (FEW) /hpf Meds: Medications Discontinued Medications Generic Name Dose Route Start Last Admin Trade Name Freq PRN Reason Stop Dose Admin Influenza Virus Vaccine 240 mcg 01/16/20 16:15 01/16/20 16:14 Fluzone High-Dose Quad IM 01/16/20 16:16 240 mcg .ONCE ONE Administration Levofloxacin 500 mg 01/16/20 16:43 01/16/20 16:48 Levaquin PO 01/16/20 16:44 500 mg ONETIME ONE Administration Lidocaine HCl 10 ml 01/16/20 15:19 01/16/20 15:30 Xylocaine 2% Jelly MUCMEM 01/16/20 15:20 10 ml ONETIME ONE Administration - Re-Assessments/Exams Free Text/Narrative Re-Assessment/Exam: 01/16/20 15:46 Patient presents to the ED for evaluation of his, and the need for COVID testing. We will obtain a state send out swab at today's visit, and have nursing staff replace the catheter, she notes this has been in place for 2 weeks. 01/16/20 16:54 A urinalysis was obtained from the new catheter, and was suspected to be infected looking. UA was obtained, and does demonstrate UTI at this time patient will be started on Levaquin for this. Departure - Departure Time of Disposition: 16:55 Disposition: Home, Self-Care 01 Condition: Good Clinical Impression: UTI, Urinary tract infectious disease, Encounter for screening laboratory testing for COVID-19 virus Russell catheter problem Qualifiers: Encounter type: initial encounter Qualified Code(s): T83.9XXA - Unspecified complication of genitourinary prosthetic device, implant and graft, initial encounter - Discharge Information *PRESCRIPTION DRUG MONITORING PROGRAM REVIEWED*: No *COPY OF PRESCRIPTION DRUG MONITORING REPORT IN PATIENT EMILY: No Prescriptions: Levofloxacin [Levaquin] 500 mg PO DAILY 5 Days #4 tablet Instructions: Urinary Tract Infection, Adult, [id number], Testicular Self- Exam, [id number] Referrals: Mary Jo Garg, MANAGER [employer] CENTER [Primary Care Provider] - Forms: ED Department Discharge Additional Instructions: You have been evaluated in the ED for your russell catheter problem and need for COVID testing. Your urinalysis was consistent with an acute urinary tract infection. Your urine was sent for culture, and you will be notified if you should need a change in your antibiotic. This may take up to 48 hours to result. You have been given a prescription for Levaquin, 500 mg 1 tablet daily for 5 days. This has been electronically sent to the [facility] pharmacy located in [place]. We did test you for COVID 19 at today's visit for your preop on Thursday. Please try to quarantine yourself at home until you get the results of your test, this may likely be 3-5 business days. You will be called and made notified of these results. Please increase your oral fluid intake and try to stay adequately hydrated. Please return to the ED if your symptoms change or worsen. Sepsis Event Note (ED) - Focused Exam Vital Signs: Vital Signs Temp Pulse Resp BP Pulse Ox 01/16/20 15:10 97.9 F 96 18 136/99 H 95 - My Orders Last 24 Hours: My Active Orders 01/16/20 15:19 Insert Urinary Catheter [OM.PC] Stat 01/16/20 15:20 Urinary Catheter Assessment [RC] ASDIRECTED 01/16/20 15:52 Influenza Vaccine Charge [RC] .DISCHARGE 01/16/20 16:10 CORONAVIRUS COVID-19 PCR PHL Stat - Assessment/Plan Last 24 Hours: My Active Orders 01/16/20 15:19 Insert Urinary Catheter [OM.PC] Stat 01/16/20 15:20 Urinary Catheter Assessment [RC] ASDIRECTED 01/16/20 15:52 Influenza Vaccine Charge [RC] .DISCHARGE 01/16/20 16:10 CORONAVIRUS COVID-19 PCR PHL Stat
[2020-01-16 15:45] VITALS: BP 136/99; PULSE 96
[2020-01-16] MEDS ORDERED: FLU Vacc QV2020-21(65YR UP)/PF 240 MCG/0.7 ML Syringe IM ONE (16:15)
[2020-01-16] MEDS ORDERED: Levofloxacin 500 MG Tab PO ONE (16:43)
== END 2020-01-16 17:10 | disposition home or self-care (01) ==
LOC: JD.ED 15:06
DX: T83.098A Other mechanical complication of other urinary catheter, initial encounter (principal); N39.0 Urinary tract infection, site not specified; E78.00 Pure hypercholesterolemia, unspecified; I10 Essential (primary) hypertension; E66.9 Obesity, unspecified; Z68.39 Body mass index [BMI] 39.0-39.9, adult; Z20.828 Contact with and (suspected) exposure to other viral communicable diseases; Z88.8 Allergy status to other drugs, medicaments and biological substances; Z88.5 Allergy status to narcotic agent
CPT/HCPCS: 51702; 81001; 90662; 99283; A9270; G0008; U0002

== ENCOUNTER 2020-02-14 05:11 | Emergency (ER) | payer MEDICARE, BC ==
[2020-02-14 05:24] VITALS: BP 168/91
--- NOTE | 2020-02-14 06:04 | EDM.PDOC ---
ED HPI GENERAL MEDICAL PROBLEM - General Chief Complaint: Genitourinary Problem Stated Complaint: PERMANENT CATH NOT WORKING Time Seen by Provider: 02/14/20 05:45 - History of Present Illness INITIAL COMMENTS - FREE TEXT/NARRATIVE: 79-year-old male presents the emergency room with a suprapubic catheter not working. Patient had a suprapubic catheter placed 3 weeks ago he is due to have the catheter replaced in 1 week. However sometime this evening the catheter started to malfunction and not drain the patient is very uncomfortable with this. Patient has not noticed any fevers or chills. Patient denies history of renal failure. Patient has not had any nausea vomiting and other than the suprapubic discomfort has not had any abdominal pain no nausea vomiting constipation or diarrhea. Bladder Pain Score (Numeric/FACES): 8 - Related Data Allergies Allergy/AdvReac Type Severity Reaction Status Date / Time amitriptyline AdvReac nausea/vomi Verified 02/14/20 05:24 ting caffeine AdvReac Headache Verified 02/14/20 05:24 codeine AdvReac nausea/vomi Verified 02/14/20 05:24 ting Home Meds: Home Meds Antiox.mv No.10/Omeg3s/Lut/Rob [I-Caps with Lutein-[place] 3 SFG] 1 cap PO DAILY 04/18/14 [History] Gluc Shah/Chondro Shah A/Vit C/Mn [Glucosamine 1,500 Complex Cp] 1 cap PO DAILY 04/18/14 [History] Cholecalciferol (Vitamin D3) [Vitamin D3] 5,000 unit PO Q2D 12/09/16 [History] SUMAtriptan succinate [Imitrex] 50 mg PO ASDIRECTED PRN 12/09/16 [History] atorvaSTATin [Lipitor] 10 mg PO BEDTIME 12/09/16 [History] Acetaminophen [Tylenol Extra Strength] 2 tab PO BID PRN 05/12/17 [History] Alendronate Sodium [Alendronate] 70 mg PO WE 05/12/17 [History] Lisinopril 40 mg PO DAILY 05/12/17 [History] Magnesium Oxide/Magnesium [Magnesium] 800 mg PO DAILY 05/12/17 [History] Tamsulosin HCl 0.4 mg PO DAILY 05/12/17 [History] Cinnamon Bark [Cinnamon] 1,000 mg PO DAILY 11/16/19 [History] Divalproex Sodium [Divalproex Sodium ER] 250 mg PO DAILY 11/16/19 [History] Mv-Mn/Herb 208/Beta-Sitosterol [Urinozinc Prostate Formula Tab] 2 tab PO DAILY 11/16/19 [History] [place]-3/DHA/Epa/Fish Oil [[place]-3 Fish Oil 1,000 MG Sfgl] 520 mg PO DAILY 11/16/19 [History] Levofloxacin [Levaquin] 500 mg PO DAILY 5 Days #4 tablet 01/16/20 [Rx] Cefdinir [Omnicef] 300 mg PO BID #14 cap 02/14/20 [Rx] Past Medical History HEENT History: Reports: Hard of Hearing Cardiovascular History: Reports: Arrhythmia, High Cholesterol, Hypertension Respiratory History: Reports: Sleep Apnea, Other (See Below) Other Respiratory History: wears CPAP Gastrointestinal History: Reports: Hemorrhoids, Other (See Below) Other Gastrointestinal History: abdominal hernia Genitourinary History: Reports: Renal Calculus, Urinary Incontinence, Other (See Below) Other Genitourinary History: blood in urine, baldder stone, nocturia, history of need for catheterization, suprapubic catheter [employer] History: Reports: None Musculoskeletal History: Reports: Osteoporosis, Other (See Below) Other Musculoskeletal History: generalized weakness, bilateral plantar fasci itis, right elbow pain Neurological History: Reports: Headaches, Chronic, Migraines Psychiatric History: Reports: None Endocrine/Metabolic History: Reports: Obesity/BMI 30+, Vitamin D Deficiency Hematologic History: Reports: None Immunologic History: Reports: None Oncologic (Cancer) History: Reports: Prostate Dermatologic History: Reports: Other (See Below) Other Dermatologic History: ingrown toenail, benign neoplasm of face, seborrheic keratosis, skin lesion and skin irritation - Infectious Disease History Infectious Disease History: Reports: None - Past Surgical History HEENT Surgical History: Reports: Tonsillectomy Respiratory Surgical History: Reports: None GI Surgical History: Reports: Colonoscopy, Hernia Repair/Other Male Surgical History: Reports: Other (See Below) Other Male Surgeries/Procedures: lithotripsy Neurological Surgical History: Reports: None Musculoskeletal Surgical History: Reports: Knee Replacement, Other (See Below) Other Musculoskeletal Surgeries/Procedures:: low back surgery, right total knee, 2 rods in right hip Dermatological Surgical History: Reports: None Social & Family History - Tobacco Use Tobacco Use Status *Q: Never Tobacco User Second Hand Smoke Exposure: No - Caffeine Use Caffeine Use: Reports: None - Recreational Drug Use Recreational Drug Use: No ED ROS GENERAL - Review of Systems Review Of Systems: See Below Constitutional: Reports: No Symptoms HEENT: Reports: No Symptoms Respiratory: Reports: No Symptoms Cardiovascular: Reports: No Symptoms Endocrine: Reports: No Symptoms GI/Abdominal: Reports: No Symptoms ED EXAM, GI/ABD - Physical Exam Exam: See Below Exam Limited By: No Limitations General Appearance: Alert, No Apparent Distress, Other Head: Atraumatic, Normocephalic Neck: Normal Inspection, Supple, Non-Tender, Full Range of Motion Respiratory/Chest: No Respiratory Distress, Lungs Clear, Normal Breath Sounds Cardiovascular: Regular Rate, Rhythm, No Edema, No Murmur GI/Abdominal Exam: Normal Bowel Sounds, Soft, Other (Obesity limits the exam his tenderness is limited to the suprapubic area) Back Exam: Normal Inspection. No: CVA Tenderness (L), CVA Tenderness (R) Extremities: Normal Inspection, No Pedal Edema Neurological: Alert, Oriented, Normal Cognition Course - Vital Signs Last Recorded V/S: Last Vital Signs Temp 36.1 C 02/14/20 05:22 Pulse Resp 20 02/14/20 05:22 BP 168/91 H 02/14/20 05:22 Pulse Ox 97 02/14/20 05:22 - Orders/Labs/Meds Orders: Active Orders 24 hr Category Date Time Status CULTURE URINE [RM] Stat Lab 02/14/20 06:30 Received Labs: Laboratory Tests 02/14/20 Range/Units 06:30 Urine Color Yellow (Yellow) Urine Appearance Cloudy H (Clear) Urine pH 6.0 (5.0-8.0) Ur Specific [place] > or = 1.030 (1.005-1.030) Urine Protein 3+ H (Negative) Urine Glucose (UA) Negative (Negative) Urine Ketones Negative (Negative) Urine Occult Blood 3+ H (Negative) Urine Nitrite Negative (Negative) Urine Bilirubin Negative (Negative) Urine Urobilinogen 0.2 (0.2-1.0) Ur Leukocyte Esterase 1+ H (Negative) Urine RBC 50-75 H (0-5) /hpf Urine WBC 50-75 H (0-5) /hpf Ur Epithelial Cells Not seen (0-5) /hpf Urine Bacteria Many H (FEW) /hpf Urine Mucus Not seen (FEW) /hpf - Re-Assessments/Exams Free Text/Narrative Re-Assessment/Exam: 02/14/20 07:41 Year in the emergency room the patient was bladder scanned and it measured just under 280 cc. Nursing attempted to flush the catheter and they could not so the catheter was replaced and he put out about 280 cc of urine. Urinalysis is looking suspicious for developing UTI. Departure - Departure Time of Disposition: 07:43 Disposition: Home, Self-Care 01 Clinical Impression: Suprapubic catheter dysfunction, Urinary tract infection associated with indwelling urethral catheter - Discharge Information Prescriptions: Cefdinir [Omnicef] 300 mg PO BID #14 cap Referrals: PCP,None [Primary Care Provider] - Forms: ED Department Discharge Additional Instructions: Return to the emergency room with any questions problems or worsening symptoms. Follow-up with your urologist next week as scheduled. You have been started on Omnicef. This is an antibiotic. Take 1 twice daily until all gone. Sepsis Event Note (ED) - Evaluation Sepsis Screening Result: No Definite Risk - Focused Exam Vital Signs: Vital Signs Temp Resp BP Pulse Ox 02/14/20 05:22 36.1 C 20 168/91 H 97 - My Orders Last 24 Hours: My Active Orders 02/14/20 06:30 CULTURE URINE [RM] Stat - Assessment/Plan Last 24 Hours: My Active Orders 02/14/20 06:30 CULTURE URINE [RM] Stat
== END 2020-02-14 08:10 | disposition home or self-care (01) ==
LOC: JD.ED 05:11
DX: T83.090A Other mechanical complication of cystostomy catheter, initial encounter (principal); T83.511A Infection and inflammatory reaction due to indwelling urethral catheter, initial encounter; E78.00 Pure hypercholesterolemia, unspecified; I10 Essential (primary) hypertension; E66.9 Obesity, unspecified; Z68.39 Body mass index [BMI] 39.0-39.9, adult; Z88.8 Allergy status to other drugs, medicaments and biological substances; Z88.5 Allergy status to narcotic agent; Z91.018 Allergy to other foods
CPT/HCPCS: 51705; 81001; 87086; 87088; 99283; 99283-25

== ENCOUNTER 2020-04-04 19:43 | Emergency (ER) | payer MEDICARE, BC ==
[2020-04-04 20:19] VITALS: BP 144/77; PULSE 113
--- NOTE | 2020-04-04 20:34 | EDM.PDOC ---
ED HPI GENERAL MEDICAL PROBLEM - General Chief Complaint: Genitourinary Problem Stated Complaint: PLUGGED CATH Time Seen by Provider: 04/04/20 20:10 Source of Information: Reports: Patient, RN Notes Reviewed History Limitations: Reports: No Limitations - History of Present Illness INITIAL COMMENTS - FREE TEXT/NARRATIVE: Patient is a 79-year-old male presenting to the emergency department with complaints of bladder fullness in his suprapubic catheter not draining. He began to feel pressure around 5 PM this evening. He lives in [place], however the clinic was not open, therefore he came to the ER. Patient states he has had the suprapubic catheter for 2-1/2 months. His urologist, Dr. Ramon Tellez, recommends an 18 Ghanaian catheter, however when he had it changed 2 weeks ago at the [facility] they unfortunately only had a 16 Ghanaian available. He feels that this is why it got clogged. He denies any back pain, fever, chills, nausea, or vomiting. Bladder Pain Score (Numeric/FACES): 8 - Related Data Allergies Allergy/AdvReac Type Severity Reaction Status Date / Time amitriptyline AdvReac Severe nausea/vomi Verified 04/04/20 20:01 ting caffeine AdvReac Severe Headache Verified 04/04/20 20:01 codeine AdvReac Severe nausea/vomi Verified 04/04/20 20:01 ting Home Meds: Home Meds Antiox.mv No.10/Omeg3s/Lut/Rob [I-Caps with Lutein-[place] 3 SFG] 1 cap PO DAILY 04/18/14 [History] Gluc Shah/Chondro Shah A/Vit C/Mn [Glucosamine 1,500 Complex Cp] 1 cap PO DAILY 04/18/14 [History] Cholecalciferol (Vitamin D3) [Vitamin D3] 5,000 unit PO Q2D 12/09/16 [History] SUMAtriptan succinate [Imitrex] 50 mg PO ASDIRECTED PRN 12/09/16 [History] atorvaSTATin [Lipitor] 10 mg PO BEDTIME 12/09/16 [History] Acetaminophen [Tylenol Extra Strength] 2 tab PO BID PRN 05/12/17 [History] Alendronate Sodium [Alendronate] 70 mg PO WE 05/12/17 [History] Lisinopril 40 mg PO DAILY 05/12/17 [History] Magnesium Oxide/Magnesium [Magnesium] 800 mg PO DAILY 05/12/17 [History] Tamsulosin HCl 0.4 mg PO DAILY 05/12/17 [History] Cinnamon Bark [Cinnamon] 1,000 mg PO DAILY 11/16/19 [History] Divalproex Sodium [Divalproex Sodium ER] 250 mg PO DAILY 11/16/19 [History] Mv-Mn/Herb 208/Beta-Sitosterol [Urinozinc Prostate Formula Tab] 2 tab PO DAILY 11/16/19 [History] [place]-3/DHA/Epa/Fish Oil [[place]-3 Fish Oil 1,000 MG Sfgl] 520 mg PO DAILY 11/16/19 [History] Past Medical History HEENT History: Reports: Hard of Hearing Cardiovascular History: Reports: Arrhythmia, High Cholesterol, Hypertension Respiratory History: Reports: Sleep Apnea, Other (See Below) Other Respiratory History: wears CPAP Gastrointestinal History: Reports: Hemorrhoids, Other (See Below) Other Gastrointestinal History: abdominal hernia Genitourinary History: Reports: Renal Calculus, Urinary Incontinence, Other (See Below) Other Genitourinary History: blood in urine, baldder stone, nocturia, history of need for catheterization, suprapubic catheter [employer] History: Reports: None Musculoskeletal History: Reports: Osteoporosis, Other (See Below) Other Musculoskeletal History: generalized weakness, bilateral plantar fasciitis, right elbow pain Neurological History: Reports: Headaches, Chronic, Migraines Psychiatric History: Reports: None Endocrine/Metabolic History: Reports: Obesity/BMI 30+, Vitamin D Deficiency Hematologic History: Reports: None Immunologic History: Reports: None Oncologic (Cancer) History: Reports: Prostate Dermatologic History: Reports: Other (See Below) Other Dermatologic History: ingrown toenail, benign neoplasm of face, seborrheic keratosis, skin lesion and skin irritation - Infectious Disease History Infectious Disease History: Reports: None - Past Surgical History HEENT Surgical History: Reports: Tonsillectomy Cardiovascular Surgical History: Reports: None Respiratory Surgical History: Reports: None GI Surgical History: Reports: Colonoscopy, Hernia Repair/Other Male Surgical History: Reports: Other (See Below) Other Male Surgeries/Procedures: lithotripsy Endocrine Surgical History: Reports: None Neurological Surgical History: Reports: None Musculoskeletal Surgical History: Reports: Knee Replacement, Other (See Below) Other Musculoskeletal Surgeries/Procedures:: low back surgery, right total knee, 2 rods in right hip Dermatological Surgical History: Reports: None Social & Family History - Tobacco Use Tobacco Use Status *Q: Never Tobacco User - Caffeine Use Caffeine Use: Reports: None - Recreational Drug Use Recreational Drug Use: No ED ROS GENERAL - Review of Systems Review Of Systems: See Below Constitutional: Reports: No Symptoms HEENT: Reports: No Symptoms Respiratory: Reports: No Symptoms Cardiovascular: Reports: No Symptoms Endocrine: Reports: No Symptoms GI/Abdominal: Reports: No Symptoms : Reports: Urinary Retention Musculoskeletal: Reports: No Symptoms Skin: Reports: No Symptoms Neurological: Reports: No Symptoms Psychiatric: Reports: No Symptoms Hematologic/Lymphatic: Reports: No Symptoms Immunologic: Reports: No Symptoms ED EXAM, RENAL/ - Physical Exam Exam: See Below General Appearance: Alert, WD/WN, No Apparent Distress Respiratory/Chest: No Respiratory Distress, Lungs Clear, Normal Breath Sounds, No Accessory Muscle Use, Chest Non-Tender Cardiovascular: Normal Peripheral Pulses, Regular Rate, Rhythm, No Edema, No Gallop, No JVD, No Murmur, No Rub GI/Abdominal: Normal Bowel Sounds, Soft, Non-Tender, No Organomegaly, No Distention, No Abnormal Bruit, No Mass, Other (well healed suprapubic catheter site. No redness or drainage.) Neurological: Alert, Oriented, CN II-XII Intact, Normal Cognition, Normal Gait, Normal Reflexes, No Motor/Sensory Deficits Psychiatric: Normal Affect, Normal Mood Skin Exam: Warm, Dry, Intact, Normal Color, No Rash Course - Vital Signs Last Recorded V/S: Last Vital Signs Temp 98.3 F 04/04/20 20:11 Pulse 113 H 04/04/20 20:11 Resp 20 04/04/20 20:11 BP 144/77 H 04/04/20 20:11 Pulse Ox 91 L 04/04/20 20:11 - Re-Assessments/Exams Free Text/Narrative Re-Assessment/Exam: Patient is a 79-year-old male presenting to the emergency department with complaints of bladder fullness in his suprapubic catheter not draining. Patient states he had a change 2 weeks ago when a 16 [place]ian was put in as the clinic did not have an 18 Ghanaian available. NAVYA Ferguson irrigated the catheter and his bladder emptied. Patient states that the pain resolved. He requested an 18 Ghanaian be placed to avoid this happening. 18 Ghanaian suprapubic catheter was inserted using sterile technique. Flow of clear urine was returned. Catheter was anchored to the abdomen to prevent pulling. We will discharge him home. Discharge instructions as documented. Departure - Departure Time of Disposition: 20:33 Disposition: Home, Self-Care 01 Condition: Good Clinical Impression: Suprapubic catheter dysfunction Qualifiers: Encounter type: initial encounter Qualified Code(s): T83.010A - Breakdown (mechanical) of cystostomy catheter, initial encounter - Discharge Information *PRESCRIPTION DRUG MONITORING PROGRAM REVIEWED*: No *COPY OF PRESCRIPTION DRUG MONITORING REPORT IN PATIENT EMILY: No Instructions: Suprapubic Catheter Home Guide Referrals: Mary Jo Garg SSIS DEVELOPER [Primary Care Provider] - Forms: ED Department Discharge Additional Instructions: You were seen in the emergency department this evening for bladder fullness and your suprapubic catheter not draining. The 16 Ghanaian catheter was irrigated and your bladder did empty. The catheter was changed to an 18 Ghanaian at your request. Continue routine catheter care. Follow-up in the clinic as scheduled for your next catheter change. Return to ER as needed. Sepsis Event Note (ED) - Evaluation Sepsis Screening Result: No Definite Risk
== END 2020-04-04 20:47 | disposition home or self-care (01) ==
LOC: JD.ED 19:43
DX: T83.090A Other mechanical complication of cystostomy catheter, initial encounter (principal); I10 Essential (primary) hypertension; E78.00 Pure hypercholesterolemia, unspecified; E66.9 Obesity, unspecified; Z68.41 Body mass index [BMI] 40.0-44.9, adult; Z88.1 Allergy status to other antibiotic agents; Z88.5 Allergy status to narcotic agent; Z88.8 Allergy status to other drugs, medicaments and biological substances; Z79.899 Other long term (current) drug therapy
CPT/HCPCS: 51702; 99283

== ENCOUNTER 2021-03-07 12:55 | Emergency (ER) | payer MEDICARE, BC ==
[2021-03-07] MEDS ORDERED: Sodium Chloride 0.9% 10 ML Syringe FLUSH PRN (13:06)
[2021-03-07 13:11] VITALS: BP 136/93; PULSE 90
[2021-03-07 14:01] LABS: CORONAVIRUS COVID-19 NAA NEGATIVE (NEGATIVE)
--- NOTE | 2021-03-07 14:18 | CR ---
Chest: Portable view of the chest was obtained. Comparison: Prior chest x-ray 11/22/20. Heart size and mediastinum are within normal limits for portable technique. Lung markings are mildly increased and difficult to exclude mild bronchitis. Lungs otherwise are clear. Bony structures show nothing acute. Impression: 1. Difficult to exclude mild bronchitis. Diagnostic code #3
--- NOTE | 2021-03-07 18:11 | EDM.PDOC ---
ED HPI GENERAL MEDICAL PROBLEM - General Chief Complaint: Respiratory Problem Stated Complaint: [facility] Time Seen by Provider: 03/07/21 13:30 Source of Information: Reports: Patient, RN Notes Reviewed History Limitations: Reports: No Limitations - History of Present Illness INITIAL COMMENTS - FREE TEXT/NARRATIVE: Patient is a 80-year-old male presenting to the emergency department by [facility] for evaluation of 8-day history of upper respiratory symptoms. Patient reports he has been experiencing nasal congestion, mild cough, purulent drainage from his eyes, fatigue, and possible subjective fever. He was seen in the clinic in [place] today for routine foot care and was found to have the symptoms. He was afebrile in the clinic with an oxygen saturation of 95% on room air. He was slightly tachypneic with a rate of 26. Patient denies any chest pain. He has had no nausea vomiting or diarrhea. States appetite is somewhat diminished. The clinic in [place] does not have access to chest x-ray or lab work, therefore he was sent here for evaluation. He has past medical history significant for congestive heart failure. He has received 2 doses of the [place] vaccination for Covid. Headache Pain Score (Numeric/FACES): 8 - Related Data Allergies Allergy/AdvReac Type Severity Reaction Status Date / Time amitriptyline AdvReac Severe nausea/vomi Verified 03/07/21 13:05 ting caffeine AdvReac Severe Headache Verified 03/07/21 13:05 codeine AdvReac Severe nausea/vomi Verified 03/07/21 13:05 ting Home Meds: Home Meds Antiox.mv No.10/Omeg3s/Lut/Rob [I-Caps with Lutein-[place] 3 SFG] 1 cap PO DAILY 04/18/14 [History] Gluc Shah/Chondro Shah A/Vit C/Mn [Glucosamine 1,500 Complex Cp] 1 cap PO DAILY 04/18/14 [History] Cholecalciferol (Vitamin D3) [Vitamin D3] 5,000 unit PO Q2D 12/09/16 [History] SUMAtriptan succinate [Imitrex] 50 mg PO ASDIRECTED PRN 12/09/16 [History] atorvaSTATin [Lipitor] 10 mg PO BEDTIME 12/09/16 [History] Acetaminophen [Tylenol Extra Strength] 2 tab PO BID PRN 05/12/17 [History] Alendronate Sodium [Alendronate] 70 mg PO WE 05/12/17 [History] Lisinopril 40 mg PO DAILY 05/12/17 [History] Magnesium Oxide/Magnesium [Magnesium] 800 mg PO DAILY 05/12/17 [History] Tamsulosin HCl 0.4 mg PO DAILY 05/12/17 [History] Cinnamon Bark [Cinnamon] 1,000 mg PO DAILY 11/16/19 [History] Divalproex Sodium [Divalproex Sodium ER] 250 mg PO DAILY 11/16/19 [History] Mv-Mn/Herb 208/Beta-Sitosterol [Urinozinc Prostate Formula Tab] 2 tab PO DAILY 11/16/19 [History] [place]-3/DHA/Epa/Fish Oil [[place]-3 Fish Oil 1,000 MG Sfgl] 520 mg PO DAILY 11/16/19 [History] Benzonatate [Tessalon Perles] 100 mg PO Q8H PRN #20 cap 03/07/21 [Rx] Benzonatate [Tessalon Perles] 200 mg PO Q8H PRN #24 cap 03/07/21 [Rx] Cefdinir [Omnicef] 300 mg PO BID 10 Days #20 cap 03/07/21 [Rx] Cefdinir [Omnicef] 300 mg PO BID 10 Days #20 cap 03/07/21 [Rx] Ofloxacin [Ocuflox 0.3% Ophth Soln] 5 ml .XX Q6H #5 ml 03/07/21 [Rx] Ofloxacin [Ocuflox 0.3% Ophth Soln] 5 ml .XX Q6H #5 ml 03/07/21 [Rx] Past Medical History HEENT History: Reports: Hard of Hearing Cardiovascular History: Reports: Arrhythmia, High Cholesterol, Hypertension Respiratory History: Reports: Sleep Apnea, Other (See Below) Other Respiratory History: wears CPAP Gastrointestinal History: Reports: Hemorrhoids, Other (See Below) Other Gastrointestinal History: abdominal hernia Genitourinary History: Reports: Renal Calculus, Urinary Incontinence, Other (See Below) Other Genitourinary History: blood in urine, baldder stone, nocturia, history of need for catheterization, suprapubic catheter CORE PLACER History: Reports: None Musculoskeletal History: Reports: Osteoporosis, Other (See Below) Other Musculoskeletal History: generalized weakness, bilateral plantar fasciitis, right elbow pain Neurological History: Reports: Headaches, Chronic, Migraines Psychiatric History: Reports: None Endocrine/Metabolic History: Reports: Obesity/BMI 30+, Vitamin D Deficiency Hematologic History: Reports: None Immunologic History: Reports: None Oncologic (Cancer) History: Reports: Prostate Dermatologic History: Reports: Other (See Below) Other Dermatologic History: ingrown toenail, benign neoplasm of face, seborrheic keratosis, skin lesion and skin irritation - Infectious Disease History Infectious Disease History: Reports: Chicken Pox, Influenza, Measles, Mumps - Past Surgical History HEENT Surgical History: Reports: Tonsillectomy Cardiovascular Surgical History: Reports: None GI Surgical History: Reports: Colonoscopy, Hernia Repair/Other Male Surgical History: Reports: Other (See Below) Other Male Surgeries/Procedures: lithotripsy Musculoskeletal Surgical History: Reports: Knee Replacement, Other (See Below) Other Musculoskeletal Surgeries/Procedures:: low back surgery, right total knee, 2 rods in right hip Dermatological Surgical History: Reports: None Social & Family History - Caffeine Use Caffeine Use: Reports: None - Recreational Drug Use Recreational Drug Use: No ED ROS GENERAL - Review of Systems Review Of Systems: See Below Constitutional: Reports: Fever, Chills, Fatigue, Decreased Appetite HEENT: Reports: Eye Discharge, Rhinitis. Denies: Eye Pain Respiratory: Reports: Cough (Dry, nonproductive). Denies: Shortness of Breath, Wheezing Cardiovascular: Reports: No Symptoms. Denies: Chest Pain, Lightheadedness Endocrine: Reports: No Symptoms GI/Abdominal: Reports: Decreased Appetite. Denies: Abdominal Pain, Diarrhea, Nausea, Vomiting : Reports: No Symptoms, Other (Chronic indwelling Parker catheter) Musculoskeletal: Reports: No Symptoms Skin: Reports: No Symptoms Neurological: Reports: No Symptoms. Denies: Dizziness, Headache Psychiatric: Reports: No Symptoms Hematologic/Lymphatic: Reports: No Symptoms Immunologic: Reports: No Symptoms ED EXAM, GENERAL - Physical Exam Exam: See Below Exam Limited By: No Limitations General Appearance: Alert, WD/WN, No Apparent Distress Eye Exam: Bilateral Eye: Conjunctival Injection, Other (Purulent drainage to bilateral eyes) Ears: Normal External Exam, Normal Canal, Hearing Grossly Normal, Normal TMs Throat/Mouth: Normal Inspection, Normal Lips, Normal Teeth, Normal Gums, Normal Oropharynx, Normal Voice, No Airway Compromise Neck: Normal Inspection, Supple, Non-Tender, Full Range of Motion Respiratory/Chest: No Respiratory Distress, No Accessory Muscle Use, Chest Non- Tender, Crackles (fine crackles bilateral bases) Cardiovascular: Normal Peripheral Pulses, Regular Rate, Rhythm, No Gallop, No JVD, No Murmur, No Rub, Other (Trace nonpitting edema to bilateral lower extremities.) GI/Abdominal: Normal Bowel Sounds, Soft, Non-Tender, No Organomegaly, No Distention, No Abnormal Bruit, No Mass (Male) Exam: Other (Chronic indwelling Parker. No redness or drainage around urethra.) Neurological: Alert, Oriented, CN II-XII Intact, Normal Cognition, Normal Gait, Normal Reflexes, No Motor/Sensory Deficits Psychiatric: Normal Affect, Normal Mood Skin Exam: Warm, Dry, Intact, Normal Color, No Rash #1 Interpretation EKG Date: 03/07/21 Time: 13:12 Rhythm: NSR Rate (Beats/Min): 89 [place]: Normal P-Wave: Present QRS: Normal ST-T: Normal QT: Normal Course - Vital Signs Last Recorded V/S: Last Vital Signs Temp 97.9 F 03/07/21 13:10 Pulse 90 03/07/21 13:10 Resp 25 H 03/07/21 13:10 BP 136/93 H 03/07/21 13:10 Pulse Ox 92 L 03/07/21 13:10 - Orders/Labs/Meds Orders: Active Orders 24 hr Category Date Time Status CULTURE URINE [MREF] Stat Lab 03/07/21 21:49 Ordered Peripheral IV Insertion Adult [OM.PC] Stat Oth 03/07/21 13:07 Ordered Labs: Laboratory Tests 03/07/21 03/07/21 03/07/21 Range/Units 13:10 13:35 13:35 WBC (4.23-9.07) K/mm3 RBC (4.63-6.08) M/mm3 Hgb (13.7-17.5) gm/dl Hct (40.1-51.0) % MCV (79.0-92.2) fl MCH (25.7-32.2) pg MCHC (32.2-35.5) g/dl RDW Std Deviation (35.1-43.9) fL Plt Count (163-337) K/mm3 MPV (9.4-12.3) fl Neutrophils % (Manual) (40-60) % Band Neutrophils % (0-10) % Lymphocytes % (Manual) (20-40) % Atypical Lymphs % % Monocytes % (Manual) (2-10) % Eosinophils % (Manual) (0.8-7.0) % Basophils % (Manual) (0.2-1.2) Platelet Estimate RBC Morph Comment Sodium (136-145) mEq/L Potassium (3.5-5.1) mEq/L Chloride (98-107) mEq/L Carbon Dioxide (21-32) mEq/L Anion Gap (5-15) BUN (7-18) mg/dL Creatinine (0.7-1.3) mg/dL Est Cr Clr Drug Dosing mL/min Estimated GFR (MDRD) (>60) mL/min BUN/Creatinine Ratio (14-18) Glucose (70-99) mg/dL Lactic Acid (0.4-2.0) mmol/L Calcium (8.5-10.1) mg/dL Total Bilirubin (0.2-1.0) mg/dL AST (15-37) U/L ALT (16-63) U/L Alkaline Phosphatase (46-116) U/L Troponin I < 0.017 (0.00-0.056) ng/mL C-Reactive Protein (<1.0) mg/dL NT-Pro-B Natriuret Pep 397 (0-450) pg/mL Total Protein (6.4-8.2) g/dl Albumin (3.4-5.0) g/dl Globulin gm/dL Albumin/Globulin Ratio (1-2) Urine Color (Yellow) Urine Appearance (Clear) Urine pH (5.0-8.0) Ur Specific [place] (1.005-1.030) Urine Protein (Negative) Urine Glucose (UA) (Negative) Urine Ketones (Negative) Urine Occult Blood (Negative) Urine Nitrite (Negative) Urine Bilirubin (Negative) Urine Urobilinogen (0.2-1.0) Ur Leukocyte Esterase (Negative) Urine RBC (0-5) /hpf Urine WBC (0-5) /hpf Ur Squamous Epith Cells (0-5) /hpf Urine Bacteria (FEW) /hpf Urine Mucus (FEW) /hpf Influenza Type A RNA Negative (NEGATIVE) Influenza Type B RNA Negative (NEGATIVE) SARS-CoV-2 RNA (NUPUR) Negative (NEGATIVE) 03/07/21 03/07/21 03/07/21 Range/Units 13:35 13:35 13:35 WBC 6.82 (4.23-9.07) K/mm3 RBC 3.95 L (4.63-6.08) M/mm3 Hgb 12.3 L (13.7-17.5) gm/dl Hct 36.9 L (40.1-51.0) % MCV 93.4 H (79.0-92.2) fl MCH 31.1 (25.7-32.2) pg MCHC 33.3 (32.2-35.5) g/dl RDW Std Deviation 42.4 (35.1-43.9) fL Plt Count 233 (163-337) K/mm3 MPV 8.9 L (9.4-12.3) fl Neutrophils % (Manual) 57 (40-60) % Band Neutrophils % 0 (0-10) % Lymphocytes % (Manual) 24 (20-40) % Atypical Lymphs % 0 % Monocytes % (Manual) 17 H (2-10) % Eosinophils % (Manual) 2 (0.8-7.0) % Basophils % (Manual) 0 L (0.2-1.2) Platelet Estimate Adequate RBC Morph Comment Normal Sodium 142 (136-145) mEq/L Potassium 3.8 (3.5-5.1) mEq/L Chloride 107 (98-107) mEq/L Carbon Dioxide 24 (21-32) mEq/L Anion Gap 14.8 (5-15) BUN 16 (7-18) mg/dL Creatinine 0.9 (0.7-1.3) mg/dL Est Cr Clr Drug Dosing 66.55 mL/min Estimated GFR (MDRD) > 60 (>60) mL/min BUN/Creatinine Ratio 17.8 (14-18) Glucose 113 H (70-99) mg/dL Lactic Acid 0.6 (0.4-2.0) mmol/L Calcium 8.4 L (8.5-10.1) mg/dL Total Bilirubin 0.8 (0.2-1.0) mg/dL AST 23 (15-37) U/L ALT 12 L (16-63) U/L Alkaline Phosphatase 67 (46-116) U/L Troponin I (0.00-0.056) ng/mL C-Reactive Protein 14.1 H* (<1.0) mg/dL NT-Pro-B Natriuret Pep (0-450) pg/mL Total Protein 7.3 (6.4-8.2) g/dl Albumin 2.8 L (3.4-5.0) g/dl Globulin 4.5 gm/dL Albumin/Globulin Ratio 0.6 L (1-2) Urine Color (Yellow) Urine Appearance (Clear) Urine pH (5.0-8.0) Ur Specific [place] (1.005-1.030) Urine Protein (Negative) Urine Glucose (UA) (Negative) Urine Ketones (Negative) Urine Occult Blood (Negative) Urine Nitrite (Negative) Urine Bilirubin (Negative) Urine Urobilinogen (0.2-1.0) Ur Leukocyte Esterase (Negative) Urine RBC (0-5) /hpf Urine WBC (0-5) /hpf Ur Squamous Epith Cells (0-5) /hpf Urine Bacteria (FEW) /hpf Urine Mucus (FEW) /hpf Influenza Type A RNA (NEGATIVE) Influenza Type B RNA (NEGATIVE) SARS-CoV-2 RNA (NUPUR) (NEGATIVE) 03/07/21 Range/Units 16:50 WBC (4.23-9.07) K/mm3 RBC (4.63-6.08) M/mm3 Hgb (13.7-17.5) gm/dl Hct (40.1-51.0) % MCV (79.0-92.2) fl MCH (25.7-32.2) pg MCHC (32.2-35.5) g/dl RDW Std Deviation (35.1-43.9) fL Plt Count (163-337) K/mm3 MPV (9.4-12.3) fl Neutrophils % (Manual) (40-60) % Band Neutrophils % (0-10) % Lymphocytes % (Manual) (20-40) % Atypical Lymphs % % Monocytes % (Manual) (2-10) % Eosinophils % (Manual) (0.8-7.0) % Basophils % (Manual) (0.2-1.2) Platelet Estimate RBC Morph Comment Sodium (136-145) mEq/L Potassium (3.5-5.1) mEq/L Chloride (98-107) mEq/L Carbon Dioxide (21-32) mEq/L Anion Gap (5-15) BUN (7-18) mg/dL Creatinine (0.7-1.3) mg/dL Est Cr Clr Drug Dosing mL/min Estimated GFR (MDRD) (>60) mL/min BUN/Creatinine Ratio (14-18) Glucose (70-99) mg/dL Lactic Acid (0.4-2.0) mmol/L Calcium (8.5-10.1) mg/dL Total Bilirubin (0.2-1.0) mg/dL AST (15-37) U/L ALT (16-63) U/L Alkaline Phosphatase (46-116) U/L Troponin I (0.00-0.056) ng/mL C-Reactive Protein (<1.0) mg/dL NT-Pro-B Natriuret Pep (0-450) pg/mL Total Protein (6.4-8.2) g/dl Albumin (3.4-5.0) g/dl Globulin gm/dL Albumin/Globulin Ratio (1-2) Urine Color Yellow (Yellow) Urine Appearance Slt cloudy H (Clear) Urine pH 5.5 (5.0-8.0) Ur Specific [place] 1.025 (1.005-1.030) Urine Protein 1+ H (Negative) Urine Glucose (UA) Negative (Negative) Urine Ketones Negative (Negative) Urine Occult Blood 2+ H (Negative) Urine Nitrite Positive H (Negative) Urine Bilirubin Negative (Negative) Urine Urobilinogen 0.2 (0.2-1.0) Ur Leukocyte Esterase 2+ H (Negative) Urine RBC 20-30 H (0-5) /hpf Urine WBC 50-75 H (0-5) /hpf Ur Squamous Epith Cells 0-5 (0-5) /hpf Urine Bacteria Many H (FEW) /hpf Urine Mucus Few (FEW) /hpf Influenza Type A RNA (NEGATIVE) Influenza Type B RNA (NEGATIVE) SARS-CoV-2 RNA (NUPUR) (NEGATIVE) Meds: Medications Discontinued Medications Generic Name Dose Route Start Last Admin Trade Name Freq PRN Reason Stop Dose Admin Sodium Chloride 10 ml 03/07/21 13:06 03/07/21 13:53 Sodium Chloride 0.9% 10 Ml Syringe FLUSH 10 ml ASDIRECTED PRN Administration Keep Vein Open - Re-Assessments/Exams Free Text/Narrative Re-Assessment/Exam: Patient is a 80-year-old male presenting to the emergency department from [facility] with concerns of respiratory illness. Patient reports not feeling well for the last week. On exam, he does have purulent drainage from bilateral eyes as well as slight skin conjunctival injection. Looks older to have faint fine crackles in the bilateral bases. Otherwise clear. Exam is otherwise unremarkable. He does have a history of congestive heart failure. Oxygen saturation has been 92 to 94% on room air since arrival to ER. He is slightly tachypneic at 25 on arrival, but is currently breathing at 22 breaths/min. Blood work, EKG, chest x-ray, Covid test, urinalysis. 03/07/21 1500 Hematology significant for hemoglobin slightly low at 12.3, CRP 14.1. Troponin is undetectably low. WBCs are normal. proBNP is normal at 397. Lactic acid normal at 0.6. Patient is Covid and influenza negative. Chest x-ray shows mildly increased lung markings difficult to exclude mild bronchitis. Otherwise clear. EKG shows normal sinus rhythm at 89 with no evidence of acute ischemia. There is tapas not collected urinalysis thus far. Once urine results are available, we will plan disposition. 03/07/21 1800 Urinalysis is significant for 2+ occult blood, positive nitrites, 2+ leukocyte esterase, 20-30 RBCs, 50-75 WBCs, and many bacteria. Urine has been sent for culture. Patient will be treated for bilateral bacterial conjunctivitis of likely sinusitis as well as urinary tract infection. We will start him on ofloxacin drops and Omnicef. I will prescribe Tessalon Perles for cough. Patient states that his friend drove up from [place] and is waiting for him to be discharged so he can take him home. Discharge instructions as documented. Departure - Departure Time of Disposition: 18:04 Disposition: Home, Self-Care 01 Condition: Good Clinical Impression: UTI, Urinary tract infectious disease, Viral illness, Bacterial conjunctivitis of both eyes Sinusitis Qualifiers: Sinusitis location: unspecified location Chronicity: acute Recurrence: non- recurrent Qualified Code(s): J01.90 - Acute sinusitis, unspecified - Discharge Information *PRESCRIPTION DRUG MONITORING PROGRAM REVIEWED*: No *COPY OF PRESCRIPTION DRUG MONITORING REPORT IN PATIENT EMILY: No Prescriptions: Ofloxacin [Ocuflox 0.3% Ophth Soln] 5 ml .XX Q6H #5 ml Ofloxacin [Ocuflox 0.3% Ophth Soln] 5 ml .XX Q6H #5 ml Cefdinir [Omnicef] 300 mg PO BID 10 Days #20 cap Cefdinir [Omnicef] 300 mg PO BID 10 Days #20 cap Benzonatate [Tessalon Perles] 100 mg PO Q8H PRN #20 cap PRN Reason: Cough Benzonatate [Tessalon Perles] 200 mg PO Q8H PRN #24 cap PRN Reason: Cough Instructions: Sinusitis, Adult, [id number], Bacterial Conjunctivitis, Adult, Urinary Tract Infection, Adult, Upper Respiratory Infection, Adult, [id number] Referrals: Brittny Ceja PA-C [Primary Care Provider] - Forms: ED Department Discharge Additional Instructions: The Omnicef and ofloxacin eyedrops as prescribed. Use the benzonatate as prescribed for cough. Use Tylenol or ibuprofen if needed for discomfort. Follow-up in the clinic on Thursday with your primary care provider. If you should experience any new or worsening symptoms over the weekend, please return to the emergency department for reevaluation. Sepsis Event Note (ED) - Evaluation Sepsis Screening Result: Possible Sepsis Risk - Focused Exam Vital Signs: Vital Signs Temp Pulse Resp BP Pulse Ox 03/07/21 13:10 97.9 F 90 25 H 136/93 H 92 L - My Orders Last 24 Hours: My Active Orders 03/07/21 13:07 Peripheral IV Insertion Adult [OM.PC] Stat 03/07/21 21:49 CULTURE URINE [MREF] Stat - Assessment/Plan Last 24 Hours: My Active Orders 03/07/21 13:07 Peripheral IV Insertion Adult [OM.PC] Stat 03/07/21 21:49 CULTURE URINE [MREF] Stat
== END 2021-03-07 18:50 | disposition home or self-care (01) ==
LOC: JD.ED 12:55
DX: B34.9 Viral infection, unspecified (principal); J01.90 Acute sinusitis, unspecified; N39.0 Urinary tract infection, site not specified; H10.9 Unspecified conjunctivitis; B96.89 Other specified bacterial agents as the cause of diseases classified elsewhere; E78.00 Pure hypercholesterolemia, unspecified; I10 Essential (primary) hypertension; E66.9 Obesity, unspecified; Z68.30 Body mass index [BMI] 30.0-30.9, adult; Z79.899 Other long term (current) drug therapy; Z88.5 Allergy status to narcotic agent; Z91.048 Other nonmedicinal substance allergy status; Z20.822 Contact with and (suspected) exposure to COVID-19
CPT/HCPCS: 0240U; 36415; 71045; 80053; 81001; 83605; 83880; 84484; 85007; 85027; 86140; 87086; 87088; 87186; 93005; 99284

== ENCOUNTER 2021-07-11 03:10 | Emergency (ER) | payer MEDICARE, BC ==
[2021-07-11 03:37] VITALS: BP 172/99; PULSE 117
== END 2021-07-11 04:30 | disposition home or self-care (01) ==
LOC: JD.ED 03:10
DX: T83.098A Other mechanical complication of other urinary catheter, initial encounter (principal); E78.00 Pure hypercholesterolemia, unspecified; I10 Essential (primary) hypertension; E66.9 Obesity, unspecified; Z68.41 Body mass index [BMI] 40.0-44.9, adult; Z88.5 Allergy status to narcotic agent; Z91.018 Allergy to other foods; Z79.899 Other long term (current) drug therapy; Z88.8 Allergy status to other drugs, medicaments and biological substances
CPT/HCPCS: 51102; 87086; 87088; 87186; 99283; 99283-25

== ENCOUNTER 2021-08-16 23:11 | Emergency (ER) | payer MEDICARE, BC ==
[2021-08-16 23:46] VITALS: BP 163/104; PULSE 112
== END 2021-08-17 00:02 | disposition home or self-care (01) ==
LOC: JD.ED 23:11
DX: T83.091A Other mechanical complication of indwelling urethral catheter, initial encounter (principal); E78.00 Pure hypercholesterolemia, unspecified; I10 Essential (primary) hypertension; E66.9 Obesity, unspecified; Z68.42 Body mass index [BMI] 45.0-49.9, adult; Z88.5 Allergy status to narcotic agent; Z91.048 Other nonmedicinal substance allergy status; Z79.899 Other long term (current) drug therapy
CPT/HCPCS: 99283

== ENCOUNTER 2022-04-24 23:29 | Emergency (ER) | payer MEDICARE, BC ==
[2022-04-24 23:43] VITALS: BP 178/99; PULSE 124
== END 2022-04-25 00:25 | disposition home or self-care (01) ==
LOC: JD.ED 23:29
DX: T83.098A Other mechanical complication of other urinary catheter, initial encounter (principal); E78.00 Pure hypercholesterolemia, unspecified; I10 Essential (primary) hypertension; E66.9 Obesity, unspecified; Z68.41 Body mass index [BMI] 40.0-44.9, adult; Z88.8 Allergy status to other drugs, medicaments and biological substances; Z88.5 Allergy status to narcotic agent; Z79.899 Other long term (current) drug therapy
CPT/HCPCS: 51705; 99283-25

== ENCOUNTER 2022-06-03 11:36 | Emergency (ER) | payer MEDICARE, BC ==
[2022-06-03 11:50] VITALS: BP 159/100; PULSE 103
[2022-06-03] MEDS ORDERED: Lidocaine 2% 11 ML Jelly Filled Syringe MUCMEM STA (12:15)
== END 2022-06-03 14:10 | disposition home or self-care (01) ==
LOC: JD.ED 11:36
DX: T83.091A Other mechanical complication of indwelling urethral catheter, initial encounter (principal); I10 Essential (primary) hypertension; E66.9 Obesity, unspecified; Z88.5 Allergy status to narcotic agent; Z91.018 Allergy to other foods; Z88.8 Allergy status to other drugs, medicaments and biological substances; Z79.899 Other long term (current) drug therapy
CPT/HCPCS: 51702; 99283; A9270; 99282

== ENCOUNTER 2022-07-05 07:57 | Emergency (ER) | payer BC, MEDICARE ==
[2022-07-05 08:08] VITALS: BP 170/96; PULSE 105
== END 2022-07-05 09:45 | disposition home or self-care (01) ==
LOC: JD.ED 07:57
DX: T83.091A Other mechanical complication of indwelling urethral catheter, initial encounter (principal); I10 Essential (primary) hypertension; E78.00 Pure hypercholesterolemia, unspecified; E66.9 Obesity, unspecified; Z68.30 Body mass index [BMI] 30.0-30.9, adult; Z88.5 Allergy status to narcotic agent; Z88.8 Allergy status to other drugs, medicaments and biological substances; Z91.048 Other nonmedicinal substance allergy status; Z79.899 Other long term (current) drug therapy
CPT/HCPCS: 51102; 99283

== ENCOUNTER 2022-08-10 15:26 | Emergency (ER) | payer MEDICARE, BC ==
[2022-08-10 15:42] VITALS: BP 131/76; PULSE 105
== END 2022-08-10 18:34 | disposition home or self-care (01) ==
LOC: JD.ED 15:26
DX: Z43.5 Encounter for attention to cystostomy (principal); E78.00 Pure hypercholesterolemia, unspecified; I10 Essential (primary) hypertension; E66.9 Obesity, unspecified; Z88.2 Allergy status to sulfonamides; Z88.8 Allergy status to other drugs, medicaments and biological substances; Z79.899 Other long term (current) drug therapy; Z68.43 Body mass index [BMI] 50.0-59.9, adult
CPT/HCPCS: 51702; 99283

== ENCOUNTER 2022-10-17 20:29 | Emergency (ER) | payer MEDICARE, BC ==
[2022-10-17] MEDS ORDERED: Acetaminophen 325 MG Tab PO ONE (21:25)
[2022-10-17 22:44] LABS: INFLUENZA A NAA NEGATIVE (NEGATIVE); RESPIRATORY SYNCYTIAL VIR NAA NEGATIVE (NEGATIVE)
[2022-10-17 22:54] LABS: CORONAVIRUS COVID-19 NAA POSITIVE (NEGATIVE)
[2022-10-17 23:42] LABS: APPEARANCE,URINE SLT CLOUDY (Clear); BILIRUBIN,URINE NEGATIVE (Negative); COLOR,URINE YELLOW (Yellow); GLUCOSE,URINE NEGATIVE (Negative); KETONES,URINE TRACE (Negative); LEUKOCYTE ESTERASE,URINE 2+ (Negative); NITRITE,URINE NEGATIVE (Negative); OCCULT BLOOD,URINE 1+ (Negative); PROTEIN,URINE 1+ (Negative)
[2022-10-17 23:57] LABS: AMORPHOUS SEDIMENT,URINE FEW /hpf (NOT SEEN); BACTERIA,URINE MANY /hpf (FEW); EPITHELIAL CELLS,URINE NOT SEEN /hpf (0-5); MUCUS,URINE FEW /hpf (FEW); WBC,URINE 50-75 /hpf (0-5)
[2022-10-18 00:09] VITALS: BP 109/61
[2022-10-18 00:13] VITALS: PULSE 98
== END 2022-10-17 23:35 | disposition home or self-care (01) ==
LOC: JD.ED 20:29
DX: S83.91XA Sprain of unspecified site of right knee, initial encounter (principal); I10 Essential (primary) hypertension; E78.00 Pure hypercholesterolemia, unspecified; E66.9 Obesity, unspecified; Z68.41 Body mass index [BMI] 40.0-44.9, adult; Z88.8 Allergy status to other drugs, medicaments and biological substances; Z88.5 Allergy status to narcotic agent; Z91.018 Allergy to other foods; Z79.899 Other long term (current) drug therapy; W06.XXXA Fall from bed, initial encounter
CPT/HCPCS: 0241U; 71045; 73564; 81001; 87086; 87088; 87186; 99284; A9270

== ENCOUNTER 2023-07-25 18:51 | Emergency (ER) | payer MEDICARE, BC ==
[2023-07-25 19:17] LABS: BASOPHILS PERCENT AUTO 0.2 % (0.0-1.0); EOSINOPHILS PERCENT AUTO 0.2 % (0.0-6.0); HEMATOCRIT 40.1 % (42.0-52.0); HEMOGLOBIN 13.9 gm/dl (14.0-18.0); IMMATURE GRAN ABSOLUTE AUTO 0.02 K/mm3 (0.00-0.05); IMMATURE GRAN PERCENT AUTO 0.4 % (0.0-0.4); LYMPHOCYTES ABSOLUTE AUTO 0.7 K/mm3 (1.0-4.8); LYMPHOCYTES PERCENT AUTO 14.7 % (24.0-44.0); MEAN CORPUSCULAR HEMOGLOBIN 31.8 pg (28.0-32.0); MEAN CORPUSCULAR HGB CONC 34.7 g/dl (32.0-36.0); MEAN CORPUSCULAR VOLUME 91.8 fl (83.0-99.0); MEAN PLATELET VOLUME 9.1 fl (9.4-12.4); MONOCYTES ABSOLUTE AUTO 0.6 K/mm3 (0.0-0.8); MONOCYTES PERCENT AUTO 12.1 % (0.0-8.0); NEUTROPHILS ABSOLUTE AUTO 3.6 K/mm3 (1.8-7.7); NEUTROPHILS PERCENT AUTO 72.4 % (41.0-71.0); PLATELET COUNT,PLT 138 K/mm3 (150-400); RED BLOOD CELL COUNT 4.37 M/mm3 (4.52-5.90); WHITE BLOOD CELL COUNT,WBC 4.96 K/mm3 (3.9-11.3)
[2023-07-25] MEDS: Albuterol/Ipratropium 3.0-0.5 MG/3 ML Neb Soln NEB ONE (19:26)
[2023-07-25 19:27] LABS: APPEARANCE,URINE CLOUDY (Clear); BILIRUBIN,URINE NEGATIVE (Negative); COLOR,URINE YELLOW (Yellow); GLUCOSE,URINE NEGATIVE (Negative); KETONES,URINE NEGATIVE (Negative); LEUKOCYTE ESTERASE,URINE 1+ (Negative); NITRITE,URINE POSITIVE (Negative); OCCULT BLOOD,URINE 2+ (Negative); PROTEIN,URINE 1+ (Negative)
[2023-07-25] MEDS: Sodium Chloride 0.9% 10 ML Syringe FLUSH PRN (19:36)
[2023-07-25] MEDS: Sodium Chloride 0.9% 500 ML IV ONE (19:36)
[2023-07-25 19:41] LABS: A/G RATIO 0.7 (1-2); ALBUMIN 2.8 g/dl (3.4-5.0); ANION GAP 12.7 (5-15); BILIRUBIN TOTAL 1.1 mg/dL (0.2-1.0); BUN/CREATININE RATIO 13.8 (14-18); C-REACTIVE PROTEIN 2.41 mg/dL (<0.30); CALCIUM 8.5 mg/dL (8.5-10.1); CREATININE 0.8 mg/dL (0.7-1.3); EST CRCL DRUG DOSING (CG) 65.35 mL/min; POTASSIUM,K 3.7 mEq/L (3.5-5.1); PROTEIN TOTAL,TP 6.6 g/dl (6.4-8.2)
[2023-07-25 19:50] LABS: BACTERIA,URINE MANY /hpf (FEW); MUCUS,URINE FEW /hpf (FEW); RBC,URINE 30-40 /hpf (0-5); SQUAMOUS EPITHELIAL CELLS,UR NOT SEEN /hpf (0-5); WBC,URINE 20-30 /hpf (0-5)
[2023-07-25 20:06] LABS: CORONAVIRUS COVID-19 NAA NEGATIVE (NEGATIVE); INFLUENZA A NAA NEGATIVE (NEGATIVE); RESPIRATORY SYNCYTIAL VIR NAA NEGATIVE (NEGATIVE)
[2023-07-25] MEDS: cefTRIAXone 2 GM in Sodium Chloride 0.9% 100 ML IV ONE (20:55)
[2023-07-25] MEDS: Acetaminophen 325 MG Tab PO ONE (20:58)
[2023-07-25 23:12] VITALS: BP 127/91; PULSE 83
== END 2023-07-25 23:05 | disposition home or self-care (01) ==
LOC: JD.ED 18:51
DX: J18.9 Pneumonia, unspecified organism (principal); N30.00 Acute cystitis without hematuria; I10 Essential (primary) hypertension; E78.00 Pure hypercholesterolemia, unspecified; E66.9 Obesity, unspecified; Z79.899 Other long term (current) drug therapy; Z68.41 Body mass index [BMI] 40.0-44.9, adult; Z88.0 Allergy status to penicillin; Z91.018 Allergy to other foods; Z88.5 Allergy status to narcotic agent
CPT/HCPCS: 0241U; 36415; 71045; 80053; 81001; 83880; 84484; 85025; 86140; 94640; 96361; 96365; 99285; A9270; J0696; J3490; J7030; J7620-GY